=== PATIENT | male | born 1960 | race Two or more races ===

== ENCOUNTER 2016-09-09 14:06 | Inpatient (IN) | payer BC ==
[2016-09-09] MEDS ORDERED: CEFTRIAXONE 2 GRAM DUPLEX 50 ML IV ONE (15:00)
[2016-09-09 15:13] LABS: BASO % 0.2 % (0.2-1.0); HEMATOCRIT 31.7 % (32.0-52.0); LYMPH % 4.4 % (15-45); MEAN CELL VOLUME 88.3 fl (80.0-94.0); MEAN PLATELET VOLUME 9.6 fl (7.4-10.4); RED CELL DISTRIBUTION WIDTH 12.3 % (11.5-14.5)
[2016-09-09 15:15] LABS: EOS % 0.2 % (0.9-2.9); HEMOGLOBIN 10.8 gm/l (14.0-18.0); IMM NEUT # 0.2 K/mm3 (0-0.2); LYMPH # 0.9 (1.0-4.8); MEAN CORPUSCULAR HEMOGLOBIN 30.1 pg (27.0-31.0); MEAN CORPUSCULAR HGB CONC 34.1 g/dl (33.0-37.0); MONO # 1.5 (0.0-0.8); MONO % 7.1 % (4-12); NEUT % 87.1 % (43-75); PLATELET COUNT 361 K/mm3 (130-400)
[2016-09-09 15:23] LABS: ALB/GLOB RATIO 0.9 (>1.0); ALBUMIN 3.2 gm/dL (3.5-5.7); CALCIUM 8.2 mg/dL (8.6-10.3)
--- NOTE | 2016-09-09 15:35 | US ---
EXAMINATION: DUPLEX VENOUS DOPPLER ULTRASOUND:LEFT LOWER EXTREMITY CLINICAL INDICATION: Left foot redness and pain. COMPARISON: None TECHNIQUE: Both grayscale imaging and Doppler interrogation with spectral analysis and color flow was performed. Compression and flow with augmentation was also utilized. The common femoral vein to the posterior tibial and peroneal veins were assessed. FINDINGS:Appropriate compressibility and flow is demonstrated in the left common femoral, superficial femoral, popliteal, and peroneal and posterior tibial veins proximally. Normal Doppler flow with augmentation was also elicited. There is inguinal lymphadenopathy which may be reactive due to cellulitis. There is a prominent lymph node measuring 4.3 x 1.8 x 3.4 cm. There is a small fluid collection medial aspect of the knee measuring 4.0 x 0.6 x 3.0 cm.This is of uncertain significance. This may reflect a knee effusion or Cruz's cyst. No gross abscess is identified. IMPRESSION: 1. No evidence of left lower extremity deep venous thrombosis. 2. Left knee effusion versus Cruz's cyst. 3. Left inguinal lymphadenopathy. This may be reactive changes to lower extremity inflammation. Subcutaneous edema is noted with no abscess identified. The findings were uploaded to the electronic medical record for review at approximately 3:35 PM 09/09/2016
--- NOTE | 2016-09-09 15:36 | RAD ---
EXAMINATION:FOOT LEFT 3 VIEWS CLINICAL INDICATION: Left foot infection for 15 days. COMPARISONS:none FINDINGS: No fracture or focal destruction is identified. Joint space relationships of the foot are maintained. Vascular calcifications are noted. There is a plantar calcaneal heel spur. No soft tissue gas or foreign body is identified. IMPRESSION: No evidence of fracture or focal destruction involving the left foot. Vascular calcific lesions are noted. There is a plantar calcaneal heel spur.
[2016-09-09 16:00] LABS: BAND 9 % (0-10); BASOPHIL 0 % (0-1); EOSINOPHIL 0 % (1-3); LYMPHOCYTE 8 % (15-45); MONOCYTE 7 % (4-12); NEUTROPHILS 76 % (43-75); TOTAL CELLS COUNTED 100
[2016-09-09 16:01] LABS: PLATELET ESTIMATE NORMAL (NORMAL)
[2016-09-09 16:23] LABS: URINE BILIRUBIN 1+ (NEGATIVE); URINE BLOOD 1+ (NEGATIVE); URINE GLUCOSE (UA) NEGATIVE (NEGATIVE); URINE LEUKOCYTE ESTERASE NEGATIVE (NEGATIVE); URINE NITRITE NEGATIVE (NEGATIVE); URINE PROTEIN 2+ (NEGATIVE)
[2016-09-09 16:29] LABS: URINE APPEARANCE CLEAR; URINE COLOR AMBER; URINE UROBILINOGEN 8 mg/dL (0-1 mg/dl)
[2016-09-09 16:37] LABS: URINE BACTERIA NONE SEEN; URINE EPITHELIAL CELLS 0-2 /hpf
[2016-09-09 16:49] VITALS: BMI 38.9
[2016-09-09] MEDS ORDERED: BISACODYL 5 MG TABLET.EC PO PRN (17:12)
[2016-09-09] MEDS ORDERED: MENTHOL/CETYLPYRD 1 EACH LOZENGE PO PRN (17:12)
[2016-09-09] MEDS ORDERED: DIPHENHYDRAMINE HCL 50 MG CAPSULE PO PRN (17:12)
[2016-09-09] MEDS ORDERED: BISACODYL 10 MG SUP PR PRN (17:12)
[2016-09-09] MEDS ORDERED: BLISTEX LIPSTICK 1 EACH TP PRN (17:12)
[2016-09-09] MEDS ORDERED: ACETAMINOPHEN 325 MG TABLET PO PRN (17:12)
[2016-09-09] MEDS ORDERED: MAGNESIUM HYDROXIDE 30 ML UDCUP PO PRN (17:12)
[2016-09-09] MEDS ORDERED: SODIUM CHLORIDE 0.9% 1,000 ML IV SCH (17:15)
[2016-09-09] MEDS ORDERED: VANCOMYCIN HCL 0 G in SODIUM CHLORIDE 0.9% 250 ML IV SCH (17:15)
[2016-09-09] MEDS ORDERED: ONDANSETRON 4 MG/2ML 2 ML VIAL IV PRN (17:25)
[2016-09-09] MEDS ORDERED: VANCOMYCIN HCL 2.25 G in SODIUM CHLORIDE 0.9% 500 ML IV ONE (18:00)
[2016-09-09] MEDS ORDERED: PUMP TUBING ONE (18:31)
[2016-09-09] MEDS: SODIUM CHLORIDE 0.9% 1,000 ML IV SCH (18:40)
[2016-09-09] MEDS: ENOXAPARIN SODIUM 40 MG/0.4 ML SYRINGE SUB-Q SCH (19:33)
[2016-09-09] MEDS: DOCUSATE SODIUM 100 MG CAPSULE PO SCH (21:05)
[2016-09-09] MEDS: INSULIN ASPART (DOSE) 100 UNITS/1 ML SUB-Q PRN (21:13)
--- NOTE | 2016-09-09 21:30 | HP ---
SARAH JOEL [id number] DATE OF : 1960 DATE OF ADMISSION: 09/09/2016 PRIMARY CARE PROVIDER: None. CHIEF COMPLAINT: Left foot pain. HISTORY OF PRESENT ILLNESS: The patient is a 56-year-old gentleman who has a history of diabetes of unknown control who presents to the emergency department today with a history of an injury at work two weeks ago. He states that he dropped a pot onto his left foot, injuring his toes. He had some pain for several days, but that pain then resolved. He states there was some redness and puffiness, but he did not think it was anything other than an injury. Approximately four days ago he noticed that the left middle toe was getting somewhat black and he was having pain again. Three days ago he began to start feeling ill with malaise and then this morning developed some nausea, vomiting and a small headache. He came into the emergency department and was noted to have significant cellulitis and gangrene of the left 3rd toe, and he is admitted for the same. PAST MEDICAL HISTORY: Positive only for diabetes Type-2, unknown control. He takes an oral medication for this, is not sure what the medication is. He denies any history of hypertension or coronary artery disease. He has no history of infections or MRSA that he recalls. PAST SURGICAL HISTORY: None. FAMILY HISTORY: The patient states he has a strong family history towards diabetes, but otherwise family history is negative or noncontributory. SOCIAL HISTORY: The patient lives with his daughter in [place] when he is in [place]. He does go to [place] from [id number], but spends most of his time in [place]. He denies any alcohol use. He denies any drug use. He denies smoking ever in his life. ALLERGIES: The patient states no known drug allergies. MEDICATIONS: The patient is taking a diabetic medication once daily. He is not sure what this medication is, but will be retrieving it so that we can see. REVIEW OF SYSTEMS: A full 14-point review of systems is performed and positive for malaise. Positive for a mild cough without any sputum. Positive for a small headache. Positive for nausea and vomiting this morning, which is now resolved. He denies any diarrhea, constipation or abdominal pain. He denies pain in his foot at this time. He does have redness and swelling down in the left leg starting from just below the knee down throughout the foot. PHYSICAL EXAMINATION: VITAL SIGNS: In the emergency department his blood pressure is 159/74. Pulse is 96. Respiratory rate is 16. He is satting 95% on room air. His temperature is 97.3. GENERAL: The patient is lying in bed in no acute distress. HEENT: Eyes, EOMI, PERRLA. Normocephalic, atraumatic. Mucous membranes are moist. Oropharynx is clear. Tympanic membranes are clear bilaterally. HEART: Regular rate and rhythm. No murmurs and no rubs. Positive S1, S2. LUNGS: Clear to auscultation bilaterally. No wheezes, rales or rhonchi. SKIN: Warm, dry and intact. He does have erythema, with clear demarcation just below the knee that extends all the way down to the ankle. There is a small patch of clearing around the crease of the ankle, which then resumes with the erythema down from the foot into the toes. The left 3rd digit is black and bleeding with wet gangrene. There is a malodorous component to his wounds. ABDOMEN: Soft, nontender, nondistended and obese. Normal bowel sounds are heard. NEUROLOGIC: Patient is awake, alert and oriented times three. He is moving all of his extremities. The patient states he has good sensation down in the bilateral lower extremities on his uninjured toes. PSYCHOLOGIC: Patient's affect is full and appropriate. STUDIES AND LABS: Lab work shows a sodium of 132, potassium 3.8 and chloride of 98. His carbon dioxide is 25. BUN of 13 and creatinine 0.7. GFR is 117. Glucose is 177 and calcium 8.2. LFTs are all within normal limits. CBC shows a white count of 20.7, hemoglobin 10.8, hematocrit 31.7 and a platelet count of 361, with a positive left shift of 87.1%. VBG lactate is 1.5. Urinalysis is essentially clear, with 1+ bilirubin, 1+ blood in the urine and 2+ protein in the urine. IMAGING: X-ray of the foot in the emergency department showed no acute fracture, with vascular calcific lesions. ASSESSMENT/PLAN: 1. Cellulitis, with gangrene of the left 3rd toe. The cellulitis extends to the foot as well as to the lower extremity. The patient has a pretty significant and extensive cellulitis of the lower extremity. He received ceftriaxone in the emergency department. I am going to change this to vancomycin for better coverage while we are awaiting wound cultures which were obtained in the ER. We also obtained blood cultures in the ER as well. Once we have a culture and sensitivity we can then adjust the antibiotic accordingly. Should he need to be on vancomycin long-term, we will likely place a PICC. I am going to consult with surgery. X-ray performed in the emergency department did not show any signs of osteomyelitis, though I think is some good chance that the left 3rd digit is not salvageable. I will have surgery evaluate this in the morning, and have already consulted them. He will be NPO after midnight for this. For any nausea or vomiting, I am going to give him Zofran as needed and he has morphine for pain if necessary, though he is not complaining of any pain at this time. 2. Diabetes Type-2. I will be ordering a hemoglobin A1C to be performed tomorrow morning, along with his morning labs. I am going to give him an insulin sliding scale and diabetic diet and monitor his sugars closely. We can adjust his medications as necessary to keep his sugars down while he is here, although his sugar in the emergency department appears to be relatively well-controlled. 3. DVT prophylaxis. The patient is high-risk. I am going to place him on Lovenox, though we may need to hold this for surgery. 4. Code status. Patient is full code. I used newspaper editor managing services David. Flake Miller Helper number was [phone].
[2016-09-10 06:14] LABS: ABSOLUTE NEUTROPHIL COUNT 15.1 K/mm3 (1.8-7.7); BASO % 0.1 % (0.2-1.0); EOS # 0.1 (0.0-0.5); EOS % 0.4 % (0.9-2.9); HEMOGLOBIN 10.3 gm/l (14.0-18.0); IMM NEUT # 0.2 K/mm3 (0-0.2); IMM NEUT% 1.1 % (0-1); LYMPH # 1.5 (1.0-4.8); LYMPH % 8.5 % (15-45); MEAN CORPUSCULAR HEMOGLOBIN 30.2 pg (27.0-31.0); MEAN CORPUSCULAR HGB CONC 34.3 g/dl (33.0-37.0); MEAN PLATELET VOLUME 9.6 fl (7.4-10.4); MONO # 1.3 (0.0-0.8); MONO % 6.9 % (4-12); PLATELET COUNT 349 K/mm3 (130-400); RED CELL DISTRIBUTION WIDTH 12.3 % (11.5-14.5)
[2016-09-10] MEDS: VANCOMYCIN HCL 1.5 G in SODIUM CHLORIDE 0.9% 500 ML IV SCH ×2 (06:21→19:38)
[2016-09-10 06:30] LABS: ALB/GLOB RATIO 0.8 (>1.0); ALBUMIN 2.8 gm/dL (3.5-5.7); CALCIUM 8.3 mg/dL (8.6-10.3)
--- NOTE | 2016-09-10 07:14 | PDOC43 ---
- Subjective Chief Complaint: left foot pain/swelling per pt doing well. no new complaints. left foot pain improved, but some noted in left 3rd toe this AM. He denies fevers, chills, nausea or vomiting. Subjective: Reports Pain Tolerable, Reports Tolerating Diet Well, Reports Urinating Without Difficulty, Denies Shortness of Breath, Denies Cough, Denies Chest Pain, Denies Abdominal Pain, Denies Nausea, Denies Vomiting, Denies Fever , Denies Chills - Objective Vital Signs Temperature 98.8 F 09/10/16 02:00 Pulse Rate 85 09/10/16 02:00 Respiratory Rate 18 09/10/16 02:00 Blood Pressure 126/65 09/10/16 02:00 O2 Saturation by Pulse Oximetry 93 09/10/16 02:00 Oxygen Delivery Method Room Air Oxygen Flow Rate 0 Intake and Output 09/08/16 09/09/16 09/10/16 23:59 23:59 23:59 Output Total 550 Balance -550 General: Alert, Oriented x3, Cooperative, No Acute Distress Lungs: Clear to Auscultation Bilaterally, Normal Air Movement Cardiovascular: Regular Rate and Rhythm, Normal S1, Normal S2, No Murmur Abdomen: Soft, Normal Bowel Sounds, Non-Distended, No Tenderness Extremities: Edema, No Cyanosis, No Tenderness Skin: Other (there is wet gengrene apparent still on 3rd toe of left foot. diffuse erythema around the left foot and to just below the knee. this appears to have improved, if not receded from yesterdays exam) Neurological: Normal Speech Psych/Mental Status: Normal Affect, Normal Mood Laboratory 09/10/16 05:45 09/10/16 05:45 09/10/16 09/09/16 09/09/16 05:45 21:08 17:13 RBC 3.41 L Estimated GFR 117 H POC Capillary Glucose 241 H 141 H Calcium 8.3 L Total Protein 6.2 L Albumin 2.8 L Albumin/Globulin Ratio 0.8 L % Immature Granulocyt 1.1 H Current Medications: Current meds reviewed in EMR. - Problems: Assessment/Plan (1) Cellulitis of left foot Status: AcuteAssessment/Plan: blood and wound cultures done 3/4 pm. currently growing GPC in pairs. will f/ u results on vanco, appears to be improving. WBC improving as well will follow (2) Diabetes type 2, uncontrolled Qualifiers: Diabetes mellitus complication status: with neurologic complications Diabetes mellitus complication detail: with polyneuropathy Diabetes mellitus retirement insulin use: without retirement use Qualifier Code: ( E11.42) Type 2 diabetes mellitus with diabetic polyneuropathy Status: ChronicAssessment/Plan: unclear control, HgbA1c is pending. on SSI and DM diet. his family is to bring in the DM med he uses at home today (3) Gangrene of toe Status: AcuteAssessment/Plan: wet gangrene on left 3rd toe. Dr. Canela consulted, will see him today. he is NPO in anticipation of need for surgical debridement VTE Prophylaxis: lovenox Disposition: pending surgical consult. anticipate SNF vs home health for wound care
[2016-09-10] MEDS ORDERED: DIPHENHYDRAMINE HCL 25 MG CAPSULE PO PRN (07:54)
[2016-09-10] MEDS ORDERED: BLISTEX LIPSTICK 1 EACH TP PRN (07:55)
[2016-09-10] MEDS: PANTOPRAZOLE 40 MG TABLET DR PO SCH (09:54)
[2016-09-10] MEDS: DOCUSATE SODIUM 100 MG CAPSULE PO SCH ×2 (09:54→21:38)
--- NOTE | 2016-09-10 11:00 | PCMCONS ---
General Surgery Consult: CC: Foot pain on Left HPI: A couple weeks ago the patient dropped a plant on his left foot. The pain got better and he didn't think much of it. He has uncontrolled diabetes. Then his foot began aching and his toe turned black. He came to the ED for evaluation and was admitted to the hospitalist service. X-Ray didn't show osteomyelitis. The patient denies any recent F/C/NV/CP/SOB, change in bladder fx, constipation , diarrhea, unintentional weight loss, easy bleeding/bruising, or other associated symptoms. REVIEW OF SYSTEMS CONSTITUTIONAL: As per HPI. EARS, NOSE, MOUTH, THROAT: No sneezing or runny nose CARDIOVASCULAR: As per HPI. RESPIRATORY: As per HPI. GASTROINTESTINAL: As per HPI. GENITOURINARY: As per HPI. NEUROLOGICAL: No history of seizures HEMATOLOGIC: As per HPI. MUSCULOSKELETAL: No change in strength. LYMPHATICS: No history of splenectomy. PSYCHIATRIC: No change in personality or affect PMH: Diabetes PSH: none Meds: diabetic medication All: NKDA SH: Denies tobacco, denies ETOH, denies illicit drug use FH: diabetes Vitals (last 24 hours): AF VSS Physical Exam: General/Constitutional: Vitals documented above, comfortable in NAD Psych: A&O x 3, normal judgment and insight. Recent and remote memory intact. Mood and affect normal. Eyes: Pupils equal, no scleral icterus Ears, Nose, Mouth, Throat: gross hearing intact Neck: Supple Heart: RRR, no LE edema Lungs: Equal rise and fall of chest wall, non-labored breathing, no audible wheezes Neuro: Gross sensation intact Abdomen: Soft, NT/ND, no guarding. No umbilical hernia. : Testicles symmetric without masses. Penis normal without lesions. Feet: Left foot 3rd toe black. erythema traveling up leg from that location up to knee. Labs (Last 24 hours): WBC ok, CMP ok Radiology: X-ray no osteo or air under the skin A/P: 56 y/o M with wet gangrene of left 3rd toe Plan: needs to go to the OR for debrediment. Will get bone cultures in the OR Will likely cut the bone back so that we can just close the toe past the black tissue discussed risks/benefits/alternatives with him and his family. Discussed the most I would be cutting off would be the whole toe. They understand and wish to proceed.
[2016-09-10] MEDS ORDERED: MIDAZOLAM HCL 5 MG/5 ML VIAL ONE (12:12)
[2016-09-10] MEDS ORDERED: FENTANYL 5 ML ONE (12:13)
[2016-09-10] MEDS ORDERED: PROPOFOL 20 ML IV ONE (12:57)
[2016-09-10] MEDS ORDERED: SPINAL PROCEDURAL TRAY 1 EACH ONE (13:00)
[2016-09-10] MEDS ORDERED: LACTATED RINGERS 1,000 ML ONE (13:10)
[2016-09-10] MEDS ORDERED: HYDROMORPHONE HCL 1 MG/ML SYRINGE IV PRN (13:49)
[2016-09-10] MEDS ORDERED: ONDANSETRON 4 MG/2ML 2 ML VIAL IV PRN (13:49)
[2016-09-10] MEDS ORDERED: FENTANYL 100 MCG/2 ML VIAL IV PRN (13:49)
[2016-09-10] MEDS ORDERED: PROMETHAZINE HCL 25 MG/ML VIAL IM PRN (13:49)
[2016-09-10] MEDS ORDERED: LACTATED RINGERS 1,000 ML IV SCH (14:00)
[2016-09-10] MEDS: SODIUM CHLORIDE 0.9% 1,000 ML IV SCH (16:06)
[2016-09-10] MEDS ORDERED: CEFTRIAXONE 1 GRAM DUPLEX 1 G in Premix (D5W) 50 ml 1 EACH IV SCH (17:45)
[2016-09-10] MEDS: LISINOPRIL 20 MG TABLET PO SCH (17:45)
[2016-09-10] MEDS: ENOXAPARIN SODIUM 40 MG/0.4 ML SYRINGE SUB-Q SCH (18:42)
[2016-09-10] MEDS: GLYBURIDE 5 MG TABLET PO SCH ×2 (18:42→21:38)
[2016-09-11] MEDS: VANCOMYCIN HCL 1.5 G in SODIUM CHLORIDE 0.9% 500 ML IV SCH ×3 (06:00→21:59)
[2016-09-11 06:14] LABS: ABSOLUTE NEUTROPHIL COUNT 16.4 K/mm3 (1.8-7.7); BASO # 0.1 K/mm3 (0.0-0.2); BASO % 0.3 % (0.2-1.0); EOS # 0.1 (0.0-0.5); EOS % 0.5 % (0.9-2.9); HEMOGLOBIN 10.7 gm/l (14.0-18.0); IMM NEUT # 0.3 K/mm3 (0-0.2); IMM NEUT% 1.5 % (0-1); LYMPH # 1.5 (1.0-4.8); LYMPH % 7.5 % (15-45); MEAN CELL VOLUME 89.9 fl (80.0-94.0); MEAN CORPUSCULAR HEMOGLOBIN 30.1 pg (27.0-31.0); MEAN CORPUSCULAR HGB CONC 33.4 g/dl (33.0-37.0); MEAN PLATELET VOLUME 9.6 fl (7.4-10.4); MONO # 1.4 (0.0-0.8); MONO % 7.3 % (4-12); NEUT % 82.9 % (43-75); PLATELET COUNT 391 K/mm3 (130-400); RED CELL DISTRIBUTION WIDTH 12.4 % (11.5-14.5)
[2016-09-11 06:19] LABS: VANCOMYCIN TROUGH 8.1 ug/ml (5.0-10.0)
[2016-09-11] MEDS: DOCUSATE SODIUM 100 MG CAPSULE PO SCH ×2 (08:10→22:14)
[2016-09-11] MEDS: GLYBURIDE 5 MG TABLET PO SCH (08:11)
[2016-09-11] MEDS: PANTOPRAZOLE 40 MG TABLET DR PO SCH (08:11)
[2016-09-11] MEDS: LISINOPRIL 20 MG TABLET PO SCH (08:11)
[2016-09-11] MEDS: MORPHINE SULFATE 2 MG/ML SYRINGE IV PRN (08:32)
[2016-09-11] MEDS: SODIUM CHLORIDE 0.9% 1,000 ML IV SCH ×2 (10:42→15:12)
--- NOTE | 2016-09-11 12:32 | PDOC43 ---
- Subjective Subjective: Reports Flatus, Reports Pain Tolerable, Denies Bowel Movement ( feeling constipated) - Objective Vital Signs Temperature 99 F 09/11/16 08:25 Pulse Rate 77 09/11/16 08:25 Respiratory Rate 22 09/11/16 08:25 Blood Pressure 147/72 09/11/16 08:25 O2 Saturation by Pulse Oximetry 97 09/11/16 08:25 Oxygen Delivery Method Nasal Cannula Oxygen Flow Rate 3 Laboratory 09/11/16 05:30 09/11/16 05:30 09/11/16 09/11/16 09/11/16 10:26 08:16 05:30 RBC 3.56 L Estimated GFR 139 H POC Capillary Glucose 102 H 58 L Calcium 8.0 L % Immature Granulocyt 1.5 H 09/10/16 09/10/16 09/10/16 21:43 17:16 14:33 RBC Estimated GFR POC Capillary Glucose 130 H 130 H 114 H Calcium % Immature Granulocyt Active Medication Orders Category Date Time Status Acetaminophen [Tylenol] Med 09/09/16 17:12 Active 650 mg PO Q6H PRN Bisacodyl [Dulcolax] Med 09/09/16 17:12 Active 10 mg AK DAILY PRN Bisacodyl [Dulcolax] Med 09/09/16 17:12 Active 5 mg PO DAILY PRN Ceftriaxone 1 Gram Duplex [Rocephin 1 Gram Premix] 1 g Med 09/10/16 17:45 Active Premix (D5W) 50 ml 1 each IV Q24H Diphenhydramine HCl [Benadryl] Med 09/10/16 07:54 Active 25 - 50 mg PO Q6H PRN Docusate Sodium [Colace] Med 09/09/16 21:00 Active 100 mg PO BID Enoxaparin Sodium [Lovenox] Med 09/09/16 18:00 Active 40 mg SUB-Q Q24H Glyburide [Diabeta] Med 09/10/16 18:00 Active 5 mg PO BID Insulin Aspart (Dose) [Novolog (Dose)] Med 09/09/16 17:15 Active See Protocol SUB-Q WM/BEDTIME PRN Lip [place] [Blistex] Med 09/10/16 07:55 Active 0 each TP PRN PRN Lisinopril [Prinivil] Med 09/10/16 17:30 Active 20 mg PO DAILY Magnesium Hydroxide [Milk of Magnesia] Med 09/09/16 17:12 Active 30 ml PO DAILY PRN Menthol/Cetylpyridinium [Cepacol] Med 09/09/16 17:12 Active 1 each PO PRN PRN Morphine Sulfate Med 09/09/16 17:26 Active 2 mg IV Q2H PRN Ondansetron 4 mg/2ml Vial [Zofran] Med 09/09/16 17:25 Active 4 mg IV Q4H PRN Oxycodone HCl [Roxicodone] Med 09/11/16 08:46 Active 5 - 10 mg PO Q3H PRN Pantoprazole Sodium [Protonix] Med 09/10/16 09:00 Active 40 mg PO DAILY Sodium Chloride 0.9% 1,000 ml Med 09/09/16 18:15 Active IV 75 mls/hr Sodium Chloride 0.9% 100 ml Med 09/09/16 17:12 Active IV PRN Sodium Chloride 0.9% Flush [Normal Saline 10ml Flush] Med 09/09/16 17:12 Active 10 - 50 ml IV PRN PRN Sodium Chloride 0.9% Flush [Normal Saline 10ml Flush] Med 09/10/16 01:00 Active 10 ml IV Q8HR Vancomycin HCl 1.5 g Med 09/11/16 14:00 Active Sodium Chloride 0.9% 500 ml IV Q8H Intake and Output 09/09/16 09/10/16 09/11/16 23:59 23:59 23:59 Intake Total 3277 1960 Output Total 1155 250 Balance 2122 1710 General: Alert, Oriented x3, Cooperative, No Acute Distress HEENT: Atraumatic, PERRLA, EOMI, Mucous membr. moist/pink Lungs: Clear to Auscultation Bilaterally, Normal Air Movement Cardiovascular: Regular Rate and Rhythm, Normal S1, Normal S2, No Murmur Abdomen: Soft, Non-Distended, Normal Bowel Sounds, No Tenderness Extremities: Edema (left foot. wound vac w/o output) - Assessment/ Plan (1) Cellulitis of left foot Status: AcuteAssessment/ Plan: continue antibiotics await final culture results (2) Gangrene of toe Status: AcuteAssessment/ Plan: continue wound VAC may get up and when sitting may elevate leg. Not much walking PT/OT needs bowel regimen may sponge bath
[2016-09-11] MEDS: PIPERACILLIN-TAZO PREMIX BAG 3.375 G in Premix (D5W) 50 ml 1 EACH IV SCH ×2 (13:49→19:35)
--- NOTE | 2016-09-11 14:51 | PDOC43 ---
- Subjective Chief Complaint: left foot pain/swelling Subjective: Denies Fever (but redness seems worse) - Objective Vital Signs Temperature 98.7 F 09/11/16 12:15 Pulse Rate 80 09/11/16 12:15 Respiratory Rate 22 09/11/16 12:15 Blood Pressure 144/73 09/11/16 12:15 O2 Saturation by Pulse Oximetry 98 09/11/16 12:15 Oxygen Delivery Method Nasal Cannula Oxygen Flow Rate 3 Intake and Output 09/10/16 09/11/16 09/12/16 06:59 06:59 06:59 Intake Total 5237 Output Total 550 855 Balance -550 4382 General: Alert, Oriented x3, Cooperative, No Acute Distress HEENT: Mucous membr. moist/pink Lungs: Clear to Auscultation Bilaterally Cardiovascular: Regular Rate and Rhythm Abdomen: Soft, Normal Bowel Sounds, Non-Distended, No Tenderness Extremities: Edema (one plus on left foot) Skin: Erythema (over dorsum of left foot up to ankle, wound vac dressing in place) Laboratory 09/11/16 05:30 09/11/16 05:30 09/11/16 09/11/16 09/11/16 10:26 08:16 05:30 RBC 3.56 L Estimated GFR 139 H POC Capillary Glucose 102 H 58 L Calcium 8.0 L % Immature Granulocyt 1.5 H 09/10/16 09/10/16 09/10/16 21:43 17:16 14:33 RBC Estimated GFR POC Capillary Glucose 130 H 130 H 114 H Calcium % Immature Granulocyt Current Medications: Current meds reviewed in EMR. - Problems: Assessment/Plan (1) Cellulitis of left foot Status: AcuteAssessment/Plan: blood and wound cultures done 3/4 pm. currently growing multiple organisms. Awaiting results on vanco and Rocephin, appears to be worse than yestereday. WBC unchanged will change rocephin to Zosyn and cont Vancomycin (2) Gangrene of toe Status: AcuteAssessment/Plan: wet gangrene on left 3rd toe. Dr. Canela performed toe amputation on 09/10 with wound vac placement-await C and S, cont. abx and wound vac (3) Diabetes type 2, uncontrolled Qualifiers: Diabetes mellitus complication status: with neurologic complications Diabetes mellitus complication detail: with polyneuropathy Diabetes mellitus correction insulin use: without correction use Qualifier Code: ( E11.42) Type 2 diabetes mellitus with diabetic polyneuropathy Status: ChronicAssessment/Plan: unclear control, HgbA1c is still pending. on SSI, glyburide and DM diet. VTE Prophylaxis: lovenox Disposition: anticipate SNF vs home health for wound care
[2016-09-11 18:02] LABS: A1C-GLYCOHEMOGLOBIN 0.6 g/dl; HEMOGLOBIN-GLYCO 9.4 g/dl
[2016-09-11] MEDS: ENOXAPARIN SODIUM 40 MG/0.4 ML SYRINGE SUB-Q SCH (18:06)
--- NOTE | 2016-09-11 18:12 | OP ---
SARAH JOEL [id number] : 1960 DATE OF SERVICE: September 10, 2016 PREOPERATIVE DIAGNOSIS: Gangrenous left third toe. POSTOPERATIVE DIAGNOSIS: Gangrenous left third toe. PROCEDURE PERFORMED: AMPUTATION OF GANGRENOUS LEFT THIRD DISTAL TOE WITH WOUND VAC PLACEMENT. SURGEON: Monica Canela M.D. ANESTHESIA: Spinal. TECHNIQUE: The patient was brought back to the operating room and placed under spinal anesthesia. The left lower leg and foot were prepped and draped in sterile surgical fashion. A #15 blade scalpel was used to cut the skin around the black gangrenous skin and then cut between the middle phalangeal bone and it was removed from the proximal because of it being clearly infected and . The proximal phalangeal looked okay so a chunk of it was taken for cultures to make sure that it did not have any osteomyelitis in it. This whole area though was surrounded by a lot of purulent infected tissue and there was really minimal oozing or bleeding through this whole dissection. I then removed all the black necrotic tissue I could. There was a deep cavity on the pad of the foot that went in about 3 cm. I used the pulse lavage after cutting all the black and [place] tissue out that I could and once I pulse lavaged as much as I could out, with 2 liters of warm saline, I then took a white piece of foam, placed it over the end of the bone and then placed a black piece of foam over the top of the white foam and hooked it up to 125 mmHg suction continuous. The patient tolerated the procedure well. We will change the VAC in another day. I will wait for culture results and tailor antibiotics based on that. I anticipate either more debridement or closure based on how he does postoperative.
[2016-09-12] MEDS: PIPERACILLIN-TAZO PREMIX BAG 3.375 G in Premix (D5W) 50 ml 1 EACH IV SCH ×4 (01:47→20:41)
[2016-09-12] MEDS: VANCOMYCIN HCL 1.5 G in SODIUM CHLORIDE 0.9% 500 ML IV SCH ×3 (05:56→22:05)
[2016-09-12] MEDS: PANTOPRAZOLE 40 MG TABLET DR PO SCH (08:30)
[2016-09-12] MEDS: LISINOPRIL 20 MG TABLET PO SCH (08:30)
[2016-09-12] MEDS: DOCUSATE SODIUM 100 MG CAPSULE PO SCH ×2 (08:30→22:30)
[2016-09-12] MEDS: GLYBURIDE 5 MG TABLET PO SCH (08:59)
--- NOTE | 2016-09-12 11:03 | PDOC43 ---
- Subjective Chief Complaint: left foot pain/swelling Subjective: Reports Pain Tolerable, Reports Other (some hypoglycemia noted), Denies Vomiting - Objective Vital Signs Temperature 99.7 F 09/12/16 07:33 Pulse Rate 80 09/12/16 07:33 Respiratory Rate 18 09/12/16 08:00 Blood Pressure 154/86 09/12/16 07:33 O2 Saturation by Pulse Oximetry 97 09/12/16 07:33 Oxygen Delivery Method Room Air Oxygen Flow Rate 0 Intake and Output 09/11/16 09/12/16 09/13/16 06:59 06:59 06:59 Intake Total 5237 3173 Output Total 855 1400 Balance 4382 1773 General: Alert, Oriented x3, Cooperative, No Acute Distress HEENT: Mucous membr. moist/pink Lungs: Clear to Auscultation Bilaterally Cardiovascular: Regular Rate and Rhythm Abdomen: Soft, Normal Bowel Sounds, Non-Distended, No Tenderness Extremities: Other (left foot erythema has progressed some up lower leg, purulent and fluctuant area under plantar aspect of foot has now developed and is about 5 by 8cm, edema unchanged, wound vac present) Laboratory 09/11/16 05:30 09/11/16 05:30 09/12/16 09/12/16 09/11/16 09:47 08:27 21:58 POC Capillary Glucose 142 H 68 L 119 H Hemoglobin A1c 09/11/16 09/10/16 19:32 05:45 POC Capillary Glucose 55 L Hemoglobin A1c 7.6 H Current Medications: Current meds reviewed in EMR. - Problems: Assessment/Plan (1) Cellulitis of left foot Status: AcuteAssessment/Plan: blood and wound cultures done 3/4 pm. currently growing multiple organisms but GBS and SA identified so far with send pending. Awaiting results Appears to be worse than yestereday. WBC unchanged Cont. Zosyn and cont Vancomycin- review with surgery (2) Gangrene of toe Status: AcuteAssessment/Plan: wet gangrene on left 3rd toe. Dr. Canela performed toe amputation on 09/10 with wound vac placement-Anticipate need for further debridement today, NPO pending surgical eval (3) Diabetes type 2, uncontrolled Qualifiers: Diabetes mellitus complication status: with neurologic complications Diabetes mellitus complication detail: with polyneuropathy Diabetes mellitus exterminator termite insulin use: without exterminator termite use Qualifier Code: ( E11.42) Type 2 diabetes mellitus with diabetic polyneuropathy Status: ChronicAssessment/Plan: unclear control, HgbA1c is 7.6. on SSI, glyburide and DM diet--stopped glyburide this am due to hypoglycemia. VTE Prophylaxis: lovenox Disposition: anticipate SNF vs home health for wound care
[2016-09-12] MEDS ORDERED: IV START KIT ONE (14:51)
[2016-09-12] MEDS ORDERED: IOPAMIDOL 300 (61%) 100 ML VIAL IV ONE (15:16)
--- NOTE | 2016-09-12 15:54 | CT ---
LOWER EXT W/ CON LT History: Left foot cellulitis. Comparison: Plain film exam dated 09/09/2016. Procedure: 1 mm axial images were obtained through the left foot following the administration of 100cc's of Isovue-300 intravenous contrast. Stacked reconstructed 3 mm images were then photographed in the axial, coronal and sagittal planes. Findings: Images demonstrate evidence of interval partial resection of the third ray. There is been amputation of the third ray beyond the mid to distal portion of the proximal phalanx. Soft tissue gas is seen both dorsal and plantar to the surgical site the margins of the amputation appear to be smooth. There is no gross cortical destruction seen at this location or involving the remaining osseous structures. Diffuse soft tissue infiltration is observed. No rim-enhancing fluid collection is observed to suggest the presence of a focal abscess. There is suggested subchondral cyst formation involving the medial portion of the talar dome measuring 14.3 x 6.5 mm in size in the axial plane. Impression: 1. Interval partial amputation of the third ray, beyond the mid to distal aspect of the third proximal phalanx. There is likely postsurgical soft tissue gas is seen both dorsally and along the plantar second and third flexor and extensor tendons. Note that this examination does not exclude the possibility of residual osseous infection. 2. Diffuse infiltration of the soft tissues suggesting edema or cellulitis. No focal rim-enhancing abscess is observed. 3. A 1.4 x 0.7 cm focus of osteochondral injury involving the medial portion of the talar dome. The overlying cortex appears to remain intact with no loose osteochondral fragment identified.
[2016-09-12] MEDS ORDERED: LIDOCAINE 1% (PRES FREE) 30 ML VIAL ONE (15:59)
[2016-09-12] MEDS ORDERED: BUPIVACAINE 0.5% (PRES FREE) 30 ML VIAL ONE (15:59)
[2016-09-12] MEDS ORDERED: MIDAZOLAM HCL 5 MG/5 ML VIAL ONE (16:42)
[2016-09-12] MEDS ORDERED: BUPIVACAINE 0.75% SPINAL AMPUL 2 ML ONE (16:42)
[2016-09-12] MEDS ORDERED: SPINAL PROCEDURAL TRAY 1 EACH ONE (16:42)
[2016-09-12] MEDS ORDERED: FENTANYL 100 MCG/2 ML VIAL ONE (16:42)
[2016-09-12] MEDS ORDERED: HYDRALAZINE HCL 20 MG/1 ML VIAL IV PRN (17:39)
[2016-09-12] MEDS ORDERED: ATROPINE SULFATE 0.4 MG/1 ML VIAL IV PRN (17:39)
[2016-09-12] MEDS ORDERED: ONDANSETRON 4 MG/2ML 2 ML VIAL IV PRN (17:39)
[2016-09-12] MEDS ORDERED: MORPHINE SULFATE 4 MG/ML SYRINGE IV PRN (17:39)
[2016-09-12] MEDS ORDERED: PROMETHAZINE HCL 25 MG/ML VIAL IM PRN (17:39)
[2016-09-12] MEDS ORDERED: MEPERIDINE 25 MG/ML SYRINGE IV PRN (17:39)
[2016-09-12] MEDS ORDERED: NALOXONE HCL 0.4 MG/ML VIAL IV PRN (17:39)
[2016-09-12] MEDS ORDERED: LABETALOL HCL 5 MG/ML 20ML VIAL IV PRN (17:39)
[2016-09-12] MEDS ORDERED: GLYCOPYRROLATE 0.2 MG/ML 1ML VIAL ONE (17:43)
[2016-09-12] MEDS ORDERED: METOCLOPRAMIDE HCL 5 MG/ML 2ML VIAL ONE (17:43)
[2016-09-12] MEDS ORDERED: METOPROLOL TARTRATE 1 MG/ML 5ML VIAL ONE (17:43)
[2016-09-12] MEDS ORDERED: CEFAZOLIN SODIUM 1,000 MG VIAL ONE (18:01)
--- NOTE | 2016-09-12 19:31 | CONS ---
SARAH JOEL [id number] DATE OF CONSULTATION: September 12, 2016 HISTORY OF PRESENT ILLNESS: This is a 56-year-old male who was admitted to the hospital on September 09, 2016. He had pain in his left foot. He is diabetic and dropped a pot on his left foot injuring his toe. He was admitted to the hospital with findings of erythema of the lower leg, ankle and foot. There was wet gangrene of the third digit with an odor. He was started on intravenous antibiotics and surgical consultation was obtained. He was taken to the operating room on September 11, [address] Canela. She performed and amputation of a gangrenous left third distal toe and placed a wound VAC. The wound VAC was to be changed today by the nurses, and they had significant concerns about how the foot looked. Dr. Canela was in clinic in [place] and asked if I could see the patient for urgent evaluation. Most of the history is obtained through his son who interprets. He does still have some pain in the foot. PHYSICAL EXAM: VITAL SIGNS: Temperature is 98.7, pulse is 78, blood pressure 157/82, respirations are 18, O2 saturation is 94% on room air. GENERAL: He is awake, alert, appears in no acute distress. EXTREMITIES: He appears to have some chronic venous stasis changes with evidence of an old wound on the anterior left lower leg. He has swelling of the entire foot to the level of the ankle. He has a wound VAC in place. There is some lifting of the calloused skin inferiorly on the plantar aspect of the foot. There is a white area of skin that tracts from the wound VAC proximally and then along the medial aspect of the foot. There seems to be some necrosis on the dorsal aspect of the foot proximal to the amputated toe. IMAGING: I asked for a CT scan of the foot. Images were visualized. There are air bubbles on the plantar aspect of the foot proximal to where I would expect the wound to be. There are also some air bubbles dorsally on the foot. No obvious bony destruction other than the amputation is seen. LABORATORIES: His blood glucose is 105. His laboratories from this morning, his white blood cell count was 19.8. It was 20.7 preoperatively. His hemoglobin is 10.7 and platelets are 391. Sodium 136, potassium 3.4, chloride 102, carbon dioxide is 26, BUN is 11, creatinine 0.6, glucose 74. Cultures from the foot show a Streptococcus agalactiae group B beta hemolytic for which penicillin was recommended. There was also a light growth of a Staphylococcus aureus with sensitivities pending. He is currently on Zosyn and vancomycin. ASSESSMENT: Cellulitis and necrotizing infection of the left foot status post amputation of the distal third toe. PLAN: I have recommended that we proceed urgently to the operating room. At this point I told him I would not proceed with a transmetatarsal despite what I find. We will open up the foot anteriorly and posteriorly. I would like to leave as much posterior skin intact for a transmetatarsal flap if needed. I have explained to him that he is at risk for requiring amputation either of the partial foot or even higher. His chronic skin changes on the lower leg make it possible that he will have continued wound healing complications even of a below the knee amputation. I used an per diem to explain risks of surgery to him and he gives informed consent. Cc: Avery Santana D.O.
--- NOTE | 2016-09-12 20:28 | OP ---
SARAH JOEL [id number] DATE OF OPERATION: September 12, 2016 PREOPERATIVE DIAGNOSES: 1. Necrotizing soft tissue infection of the left foot. 2. Prior partial amputation of the third toe. POSTOPERATIVE DIAGNOSIS: 1. Necrotizing soft tissue infection of the left foot. 2. Prior partial amputation of the third toe. PROCEDURES: 1. INCISION AND DEBRIDEMENT OF NECROTIZING SOFT TISSUE INFECTION OF THE LEFT FOOT. 2. COMPLETION OF AMPUTATION OF THE PROXIMAL PHALANX OF THE THIRD TOE. SURGEON: Francisco J Juárez M.D. ANESTHESIA: Spinal by Karol Peña C.R.N.A. INDICATIONS: This is a 56-year-old male with diabetes who had a pot fall on to his left foot at work. He developed wet gangrene of the third toe. This was amputated. He has had persistent signs of infection including a CAT scan showing air bubbles dorsally and on the plantar aspect of the foot. DESCRIPTION: With informed consent he was taken to the operating room where spinal anesthetic was administered. The wound VAC was removed. The left foot was prepped and draped in a sterile fashion. There was purulence coming posterior and medial on the proximal phalanx of the third toe. There was also some coming anteriorly. I opened the skin anteriorly to an area of necrotic skin. There was some purulent material that was encountered and suctioned. There was no obvious bony destruction of the metatarsals at this area. There was pus coming from the space between the second and third metatarsals. There was also pus coming posteriorly. I opened the skin and plantar fascia proximally. There was quite a bit of calloused skin that I removed from the plantar aspect including the second toe. There was a space containing purulent material above and below the plantar fascia. There was an area of skin that was beginning to necrose in the mid foot. I did incise this almost as a counter incision. I did not open to the extent of the wound cavity in that that would have transected a potential posterior transmetatarsal skin flap. I debrided necrotic tissue from the subcutaneous fat around the base of the third toe. I completely excised the proximal phalanx at the metatarsophalangeal joint. The distal head was the only part of the bone exposed. I expect that in a best case scenario, we will revise this down the road and excise the metatarsal head once infection has been cleared. I am quite concerned that he going to need further amputation however. I used a PulsaVac with some Ancef of at least 1.5 liters to clean the plantar aspect of the foot above and below the plantar fascia. I cleaned the dorsal aspect of the foot as well. We placed some 1 inch iodoform Nu Gauze into the wound. Bulky absorbent dressings were applied. He was hemodynamically stable during the procedure and was taken to the recovery room in stable condition. Note was made that needle instrument and lap counts were correct at time of closure. Cc: Avery Santana M.D.
[2016-09-12] MEDS ORDERED: PUMP TUBING ONE (20:33)
[2016-09-12] MEDS: LACTATED RINGERS 1,000 ML IV SCH (20:40)
[2016-09-12] MEDS: ENOXAPARIN SODIUM 40 MG/0.4 ML SYRINGE SUB-Q SCH (20:41)
[2016-09-12] MEDS: MORPHINE SULFATE 2 MG/ML SYRINGE IV PRN (23:44)
[2016-09-13] MEDS: PIPERACILLIN-TAZO PREMIX BAG 3.375 G in Premix (D5W) 50 ml 1 EACH IV SCH ×4 (01:09→19:30)
[2016-09-13] MEDS: LACTATED RINGERS 1,000 ML IV SCH ×3 (05:35→22:12)
[2016-09-13] MEDS: MORPHINE SULFATE 2 MG/ML SYRINGE IV PRN ×2 (05:35→08:42)
[2016-09-13] MEDS: VANCOMYCIN HCL 1.5 G in SODIUM CHLORIDE 0.9% 500 ML IV SCH ×3 (05:35→21:58)
[2016-09-13 05:53] LABS: HEMOGLOBIN 9.7 gm/l (14.0-18.0); MEAN CORPUSCULAR HEMOGLOBIN 29.8 pg (27.0-31.0); MEAN CORPUSCULAR HGB CONC 33.4 g/dl (33.0-37.0); RED CELL DISTRIBUTION WIDTH 12.3 % (11.5-14.5)
[2016-09-13 06:24] LABS: CALCIUM 7.7 mg/dL (8.6-10.3)
[2016-09-13] MEDS ORDERED: POTASSIUM CHLORIDE 20 MEQ TAB.PRT.SR PO ONE (08:25)
--- NOTE | 2016-09-13 08:26 | PDOC43 ---
- Subjective Subjective: Reports Pain Tolerable - Objective Vital Signs Temperature 98.4 F 09/13/16 07:36 Pulse Rate 76 09/13/16 07:36 Respiratory Rate 18 09/13/16 07:36 Blood Pressure 144/73 09/13/16 07:36 O2 Saturation by Pulse Oximetry 92 09/13/16 07:36 Oxygen Delivery Method Room Air Oxygen Flow Rate 0 Laboratory 09/13/16 05:00 09/13/16 05:00 09/13/16 09/13/16 09/12/16 07:33 05:00 13:09 RBC 3.26 L Estimated GFR 117 H POC Capillary Glucose 109 H 105 H Calcium 7.7 L 09/12/16 09/12/16 09:47 08:27 RBC Estimated GFR POC Capillary Glucose 142 H 68 L Calcium Active Medication Orders Category Date Time Status Acetaminophen [Tylenol] Med 09/09/16 17:12 Active 650 mg PO Q6H PRN Atropine Sulfate Med 09/12/16 17:39 Active 0.2 mg IV X1 PRN Bisacodyl [Dulcolax] Med 09/09/16 17:12 Active 10 mg [place] DAILY PRN Bisacodyl [Dulcolax] Med 09/09/16 17:12 Active 5 mg PO DAILY PRN Diphenhydramine HCl [Benadryl] Med 09/10/16 07:54 Active 25 - 50 mg PO Q6H PRN Docusate Sodium [Colace] Med 09/09/16 21:00 Active 100 mg PO BID Enoxaparin Sodium [Lovenox] Med 09/09/16 18:00 Active 40 mg SUB-Q Q24H Glyburide [Diabeta] Med 09/12/16 09:00 Active 5 mg PO QAM Hydralazine HCl [Apresoline] Med 09/12/16 17:39 Active 5 mg IV Q10M PRN Insulin Aspart (Dose) [Novolog (Dose)] Med 09/09/16 17:15 Active See Protocol SUB-Q WM/BEDTIME PRN Labetalol HCl [Trandate] Med 09/12/16 17:39 Active 5 mg IV Q5M PRN Lactated Ringers 1,000 ml Med 09/12/16 17:45 Active IV 100 mls/hr Lip [place] [Blistex] Med 09/10/16 07:55 Active 0 each TP PRN PRN Lisinopril [Prinivil] Med 09/10/16 17:30 Active 20 mg PO DAILY Magnesium Hydroxide [Milk of Magnesia] Med 09/09/16 17:12 Active 30 ml PO DAILY PRN Menthol/Cetylpyridinium [Cepacol] Med 09/09/16 17:12 Active 1 each PO PRN PRN Meperidine [Demerol] Med 09/12/16 17:39 Active 25 mg IV Q10M PRN Morphine Sulfate Med 09/09/16 17:26 Active 2 mg IV Q2H PRN Morphine Sulfate Med 09/12/16 17:39 Active 2 mg IV Q5M PRN Naloxone HCl [Narcan] Med 09/12/16 17:39 Active 0.2 mg IV X1 PRN Ondansetron 4 mg/2ml Vial [Zofran] Med 09/09/16 17:25 Active 4 mg IV Q4H PRN Ondansetron 4 mg/2ml Vial [Zofran] Med 09/12/16 17:39 Active 4 mg IV X1 PRN Oxycodone HCl [Roxicodone] Med 09/11/16 08:46 Active 5 - 10 mg PO Q3H PRN Pantoprazole Sodium [Protonix] Med 09/10/16 09:00 Active 40 mg PO DAILY Piperacillin-Tazo Premix Bag [Zosyn 3.375 G] 3.375 g Med 09/11/16 13:00 Active Premix (D5W) 50 ml 1 each IV Q6H Promethazine HCl [Phenergan] Med 09/12/16 17:39 Active 12.5 - 25 mg IM X1 PRN Sodium Chloride 0.9% 100 ml Med 09/09/16 17:12 Active IV PRN Sodium Chloride 0.9% Flush [Normal Saline 10ml Flush] Med 09/09/16 17:12 Active 10 - 50 ml IV PRN PRN Sodium Chloride 0.9% Flush [Normal Saline 10ml Flush] Med 09/10/16 01:00 Active 10 ml IV Q8HR Vancomycin HCl 1.5 g Med 09/11/16 14:00 Active Sodium Chloride 0.9% 500 ml IV Q8H Intake and Output 09/12/16 09/13/16 09/14/16 06:59 06:59 06:59 Intake Total 9272 7147 Output Total 1400 2020 Balance 1773 1377 General: Alert, Oriented x3 Extremities: Cyanosis (Tissues looking better. Overall erythema of the foot looks about the same. No odor or pus visible.), Edema, No Tenderness Skin: Warm, Erythema Psych/Mental Status: Normal Affect - Assessment/ Plan (1) Cellulitis of left foot Status: AcuteAssessment/ Plan: continue antibiotics await final culture results expect erythema to improve. If getting worse, may need BKA. 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 Surprising with degree of cellulitis.
--- NOTE | 2016-09-13 08:31 | PDOC43 ---
- Subjective Chief Complaint: left foot pain/swelling Patient awake with at bedside. His pain is controlled. Subjective: Reports Pain Tolerable, Reports Tolerating Diet Well, Reports Adequate Oral Intake, Reports Bowel Movement, Reports Urinating Without Difficulty, Denies Shortness of Breath, Denies Cough, Denies Chest Pain, Denies Abdominal Pain - Objective Vital Signs Temperature 98.4 F 09/13/16 07:36 Pulse Rate 76 09/13/16 07:36 Respiratory Rate 18 09/13/16 07:36 Blood Pressure 144/73 09/13/16 07:36 O2 Saturation by Pulse Oximetry 92 09/13/16 07:36 Oxygen Delivery Method Room Air Oxygen Flow Rate 0 Intake and Output 09/11/16 09/12/16 09/13/16 23:59 23:59 23:59 Intake Total 3483 2009 3036 Output Total 250 2950 470 Balance 3233 -940 2567 General: Alert, Oriented x3, Cooperative, Other (morbidly obese), No Acute Distress HEENT: Atraumatic, PERRLA, EOMI, Mucous membr. moist/pink Lungs: Clear to Auscultation Bilaterally, Normal Air Movement Cardiovascular: Regular Rate and Rhythm, Normal S1, Normal S2 Abdomen: Soft, Distention, No Rigid, No Tenderness, No Rebounding Extremities: Other (left foot with 3rd digit amputation, incision to mid-foot with erythema, edema), No Cyanosis, No Edema, No Tenderness Wound: Erythema Neurological: Normal Speech Psych/Mental Status: Normal Mood Laboratory 09/13/16 05:00 09/13/16 05:00 09/13/16 09/13/16 09/12/16 07:33 05:00 13:09 RBC 3.26 L Estimated GFR 117 H POC Capillary Glucose 109 H 105 H Calcium 7.7 L 09/12/16 09/12/16 09:47 08:27 RBC Estimated GFR POC Capillary Glucose 142 H 68 L Calcium Current Medications: Current meds reviewed in EMR. - Problems: Assessment/Plan (1) Cellulitis of left foot Status: AcuteAssessment/Plan: blood and wound cultures done 3/4 pm. currently growing multiple organisms but GBS and SA identified so far with send pending. Awaiting results Appears to be worse than yestereday. WBC unchanged Cont. Zosyn and cont Vancomycin Foot with increased erythema, edema. Went for I&D last evening, infection seems to be progressing. Will monitor and plan for possible amputation if continued progression of infection (2) Gangrene of toe Status: AcuteAssessment/Plan: wet gangrene on left 3rd toe. Dr. Canela performed toe amputation on 09/10 with wound vac placement-Anticipate need for further debridement today, NPO pending surgical eval Foot with increased erythema, edema. Went for I&D last evening, infection seems to be progressing. 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 on SSI, glyburide and DM diet--stopped glyburide this am due to hypoglycemia. (4) Morbidly obese Qualifiers: Obesity type: due to excess calories Qualifier Code: (E66.01) Morbid ( severe) obesity due to excess calories Status: ChronicAssessment/Plan: BMI of 39.0. Complicates medical care VTE Prophylaxis: lovenox Disposition: anticipate SNF vs home health for wound care
[2016-09-13] MEDS: DOCUSATE SODIUM 100 MG CAPSULE PO SCH ×2 (08:55→21:14)
[2016-09-13] MEDS: LISINOPRIL 20 MG TABLET PO SCH (08:55)
[2016-09-13] MEDS: PANTOPRAZOLE 40 MG TABLET DR PO SCH (08:55)
[2016-09-13] MEDS: OXYCODONE HCL 5 MG TABLET PO PRN ×3 (09:00→17:15)
[2016-09-13] MEDS: GLYBURIDE 5 MG TABLET PO SCH (09:03)
[2016-09-13] MEDS: SULFAMETHOXAZOLE 800 MG/TRIMETHOPRIM 160 MG TABLET PO SCH ×2 (10:43→21:14)
[2016-09-13 13:26] LABS: VANCOMYCIN TROUGH 14.9 ug/ml (5.0-10.0)
[2016-09-13] MEDS: ENOXAPARIN SODIUM 40 MG/0.4 ML SYRINGE SUB-Q SCH (17:15)
[2016-09-13] MEDS: INSULIN ASPART (DOSE) 100 UNITS/1 ML SUB-Q PRN ×2 (17:22→21:18)
[2016-09-14] MEDS: PIPERACILLIN-TAZO PREMIX BAG 3.375 G in Premix (D5W) 50 ml 1 EACH IV SCH ×4 (01:10→19:44)
[2016-09-14] MEDS: VANCOMYCIN HCL 1.5 G in SODIUM CHLORIDE 0.9% 500 ML IV SCH ×3 (05:53→21:19)
[2016-09-14] MEDS: OXYCODONE HCL 5 MG TABLET PO PRN ×2 (05:56→19:54)
[2016-09-14 06:46] LABS: ABSOLUTE NEUTROPHIL COUNT 12.7 K/mm3 (1.8-7.7); BASO % 0.1 % (0.2-1.0); EOS # 0.2 (0.0-0.5); EOS % 1.2 % (0.9-2.9); HEMATOCRIT 30.8 % (32.0-52.0); HEMOGLOBIN 10.2 gm/l (14.0-18.0); IMM NEUT # 0.2 K/mm3 (0-0.2); IMM NEUT% 1.4 % (0-1); LYMPH # 1.3 (1.0-4.8); LYMPH % 8.6 % (15-45); MEAN CELL VOLUME 88.3 fl (80.0-94.0); MEAN CORPUSCULAR HEMOGLOBIN 29.2 pg (27.0-31.0); MEAN CORPUSCULAR HGB CONC 33.1 g/dl (33.0-37.0); MEAN PLATELET VOLUME 9.4 fl (7.4-10.4); MONO # 0.9 (0.0-0.8); MONO % 5.7 % (4-12); PLATELET COUNT 410 K/mm3 (130-400); RED CELL DISTRIBUTION WIDTH 12.5 % (11.5-14.5)
[2016-09-14 06:58] LABS: CALCIUM 7.9 mg/dL (8.6-10.3)
--- NOTE | 2016-09-14 07:40 | PDOC43 ---
- Subjective Subjective: Reports Pain Tolerable, Denies Nausea, Denies Fever - Objective Vital Signs Temperature 98.4 F 09/14/16 07:26 Pulse Rate 80 09/14/16 07:26 Respiratory Rate 17 09/14/16 07:26 Blood Pressure 155/93 09/14/16 07:26 O2 Saturation by Pulse Oximetry 91 09/14/16 07:26 Oxygen Delivery Method Room Air Oxygen Flow Rate 0 Laboratory 09/14/16 06:00 09/14/16 06:00 09/14/16 09/14/16 09/13/16 07:06 06:00 21:13 RBC 3.49 L Estimated GFR 117 H POC Capillary Glucose 125 H 228 H Calcium 7.9 L Vancomycin Trough % Immature Granulocyt 1.4 H 09/13/16 09/13/16 09/13/16 17:15 12:55 12:45 RBC Estimated GFR 117 H POC Capillary Glucose 211 H 180 H Calcium Vancomycin Trough 14.9 H % Immature Granulocyt 09/13/16 07:33 RBC Estimated GFR POC Capillary Glucose 109 H Calcium Vancomycin Trough % Immature Granulocyt Active Medication Orders Category Date Time Status Acetaminophen [Tylenol] Med 09/09/16 17:12 Active 650 mg PO Q6H PRN Bisacodyl [Dulcolax] Med 09/09/16 17:12 Active 10 mg [place] DAILY PRN Bisacodyl [Dulcolax] Med 09/09/16 17:12 Active 5 mg PO DAILY PRN Diphenhydramine HCl [Benadryl] Med 09/10/16 07:54 Active 25 - 50 mg PO Q6H PRN Docusate Sodium [Colace] Med 09/09/16 21:00 Active 100 mg PO BID Enoxaparin Sodium [Lovenox] Med 09/09/16 18:00 Active 40 mg SUB-Q Q24H Glyburide [Diabeta] Med 09/12/16 09:00 Active 5 mg PO QAM Insulin Aspart (Dose) [Novolog (Dose)] Med 09/09/16 17:15 Active See Protocol SUB-Q WM/BEDTIME PRN Lip [place] [Blistex] Med 09/10/16 07:55 Active 0 each TP PRN PRN Lisinopril [Prinivil] Med 09/10/16 17:30 Active 20 mg PO DAILY Magnesium Hydroxide [Milk of Magnesia] Med 09/09/16 17:12 Active 30 ml PO DAILY PRN Menthol/Cetylpyridinium [Cepacol] Med 09/09/16 17:12 Active 1 each PO PRN PRN Ondansetron 4 mg/2ml Vial [Zofran] Med 09/09/16 17:25 Active 4 mg IV Q4H PRN Oxycodone HCl [Roxicodone] Med 09/11/16 08:46 Active 5 - 10 mg PO Q3H PRN Pantoprazole Sodium [Protonix] Med 09/10/16 09:00 Active 40 mg PO DAILY Piperacillin-Tazo Premix Bag [Zosyn 3.375 G] 3.375 g Med 09/11/16 13:00 Active Premix (D5W) 50 ml 1 each IV Q6H Sodium Chloride 0.9% 100 ml Med 09/09/16 17:12 Active IV PRN Sodium Chloride 0.9% Flush [Normal Saline 10ml Flush] Med 09/09/16 17:12 Active 10 - 50 ml IV PRN PRN Sodium Chloride 0.9% Flush [Normal Saline 10ml Flush] Med 09/10/16 01:00 Active 10 ml IV Q8HR Sulfamethoxazole/Trimethoprim [Septra Ds] Med 09/13/16 09:45 Active 1 each PO BID Vancomycin HCl 1.5 g Med 09/11/16 14:00 Active Sodium Chloride 0.9% 500 ml IV Q8H Intake and Output 09/13/16 09/14/16 09/15/16 06:59 06:59 06:59 Intake Total 3397 2480 Output Total 20195 Balance 1377 355 General: Alert, Oriented x3 Extremities: Edema, Tenderness Wound: Erythema, No Drainage (Maybe a little better.) Psych/Mental Status: Normal Affect - Assessment/ Plan (1) Cellulitis of left foot Status: AcuteAssessment/ Plan: continue antibiotics. I agree that PICC is indicated. await final culture results on Staph. WBC improved is reassuring. I expect erythema to improve. If getting worse, may need BKA. 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 Surprising with degree of cellulitis.
[2016-09-14] MEDS: PANTOPRAZOLE 40 MG TABLET DR PO SCH (08:34)
[2016-09-14] MEDS: LISINOPRIL 20 MG TABLET PO SCH (08:34)
[2016-09-14] MEDS: DOCUSATE SODIUM 100 MG CAPSULE PO SCH ×3 (08:34→21:10)
[2016-09-14] MEDS: GLYBURIDE 5 MG TABLET PO SCH (08:35)
[2016-09-14] MEDS: SULFAMETHOXAZOLE 800 MG/TRIMETHOPRIM 160 MG TABLET PO SCH ×3 (08:35→21:10)
--- NOTE | 2016-09-14 10:06 | PDOC43 ---
- Subjective Chief Complaint: left foot pain/swelling Subjective: Reports Tolerating Diet Well, Reports Adequate Oral Intake, Denies Fever - Objective Vital Signs Temperature 98.4 F 09/14/16 07:26 Pulse Rate 80 09/14/16 07:26 Respiratory Rate 17 09/14/16 07:26 Blood Pressure 155/93 09/14/16 07:26 O2 Saturation by Pulse Oximetry 91 09/14/16 07:26 Oxygen Delivery Method Room Air Oxygen Flow Rate 0 Intake and Output 09/13/16 09/14/16 09/15/16 06:59 06:59 06:59 Intake Total 3397 2480 Output Total 2019 2124 Balance 1377 355 General: Alert, Oriented x3, Cooperative, No Acute Distress HEENT: Mucous membr. moist/pink Lungs: Clear to Auscultation Bilaterally Cardiovascular: Regular Rate and Rhythm Abdomen: Soft, Normal Bowel Sounds, Non-Distended, No Tenderness Extremities: Edema (resolving) Skin: Erythema (inleft lower leg improving, in foot stable to slightly improved , surgical wound is stable.) Laboratory 09/14/16 06:00 09/14/16 06:00 09/14/16 09/14/16 09/13/16 07:06 06:00 21:13 RBC 3.49 L Estimated GFR 117 H POC Capillary Glucose 125 H 228 H Calcium 7.9 L Vancomycin Trough % Immature Granulocyt 1.4 H 09/13/16 09/13/16 09/13/16 17:15 12:55 12:45 RBC Estimated GFR 117 H POC Capillary Glucose 211 H 180 H Calcium Vancomycin Trough 14.9 H % Immature Granulocyt Current Medications: Current meds reviewed in EMR. - Problems: Assessment/Plan (1) Cellulitis of left foot Status: AcuteAssessment/Plan: blood and wound cultures done 3/4 pm. currently growing multiple organisms but GBS and SA identified so far with sens. pending. Awaiting results Appears to be improving. WBC down slightly Cont. Zosyn, bactrim and Vancomycin Foot with improving erythema, edema. Went for I&D on 09/12, infection seems to be improving. Will monitor and follow with surgery, consult with ID when sens return. (2) Gangrene of toe Status: AcuteAssessment/Plan: wet gangrene on left 3rd toe. Dr. Canela performed toe amputation on 3/5 with wound vac placement, S/P repeat I and D on 09/12 now with daily dressing changes-Anticipate replacement of wound vac in 1-2 days (3) Diabetes type 2, uncontrolled Qualifiers: Diabetes mellitus complication status: with neurologic complications Diabetes mellitus complication detail: with polyneuropathy Diabetes mellitus senior living insulin use: without senior living use Qualifier Code: ( E11.42) Type 2 diabetes mellitus with diabetic polyneuropathy Status: ChronicAssessment/Plan: unclear control, HgbA1c is 7.6. on SSI, glyburide and DM diet--on daily Glyburide, requested dietitian consult VTE Prophylaxis: lovenox Disposition: anticipate SNF vs home health for wound care
[2016-09-14] MEDS: SODIUM CHLORIDE 0.9% 100 ML IV PRN (14:54)
--- NOTE | 2016-09-14 15:00 | SURGPATH ---
[facility] [address] [place] [id number] Patient Name: SARAH JOEL MR#: [id number] : 1960 Gender: M Specimen #: [id number] Collected: 09/10/2016 Received: 09/12/2016 Reported: 09/14/2016 Submitting Phys: PÉREZ HENRY Copy To Phys: JOANNA ALICEA [facility] Clinical History / Pre-Operative Diagnosis: Gangrene left third toe Specimen Source / Surgical Procedure Performed: Left third toe Interpretation: LEFT THIRD TOE AMPUTATION: - GANGRENOUS NECROSIS - ACUTE OSTEOMYELITIS Electronically Signed Out Nehemias Bauer M.D. Gross Description: The specimen is received in formalin labeled with the patient's name and "left third toe". The specimen consists of a 3.0 x 2.0 x 1.5 cm distal tip of a toe with nail. The specimen is entirely abnormal quevedo-black. The excisional surface is marked with black ink. The bone is softened. Senior Power Scheduler tissue is submitted. A. tip; B. longitudinal cross section including bone after decalcification DESIREE Luke Microscopic Description: Microscopic performed. 1: 98450, 50170 M86.079
[2016-09-14] MEDS: ENOXAPARIN SODIUM 40 MG/0.4 ML SYRINGE SUB-Q SCH (18:01)
[2016-09-15] MEDS: PIPERACILLIN-TAZO PREMIX BAG 3.375 G in Premix (D5W) 50 ml 1 EACH IV SCH ×4 (00:23→19:42)
[2016-09-15] MEDS: VANCOMYCIN HCL 1.5 G in SODIUM CHLORIDE 0.9% 500 ML IV SCH (05:44)
[2016-09-15] MEDS: GLYBURIDE 5 MG TABLET PO SCH (08:49)
[2016-09-15] MEDS: LISINOPRIL 20 MG TABLET PO SCH (08:49)
[2016-09-15] MEDS: PANTOPRAZOLE 40 MG TABLET DR PO SCH (08:49)
[2016-09-15] MEDS: SULFAMETHOXAZOLE 800 MG/TRIMETHOPRIM 160 MG TABLET PO SCH ×2 (08:49→21:46)
[2016-09-15] MEDS: DOCUSATE SODIUM 100 MG CAPSULE PO SCH ×2 (08:49→21:46)
[2016-09-15] MEDS ORDERED: LIDOCAINE 1% (PRES FREE) 5 ML VIAL PF PRN (09:37)
[2016-09-15] MEDS ORDERED: LORAZEPAM 2 MG/ML 1ML SDV IV PRN (09:37)
--- NOTE | 2016-09-15 10:37 | PDOC43 ---
- Subjective Chief Complaint: left foot pain/swelling Subjective: Reports Pain Tolerable, Reports Tolerating Diet Well, Denies Fever - Objective Vital Signs Temperature 98.6 F 09/15/16 07:54 Pulse Rate 74 09/15/16 07:54 Respiratory Rate 16 09/15/16 07:54 Blood Pressure 145/63 09/15/16 07:54 O2 Saturation by Pulse Oximetry 92 09/15/16 07:54 Oxygen Delivery Method Room Air Oxygen Flow Rate 0 Intake and Output 09/14/16 09/15/16 09/16/16 06:59 06:59 06:59 Intake Total 2480 3285 Output Total 2125 1525 Balance 355 1760 General: Alert, Oriented x3, Cooperative, No Acute Distress HEENT: Mucous membr. moist/pink Lungs: Clear to Auscultation Bilaterally Cardiovascular: Regular Rate and Rhythm Abdomen: Soft, Normal Bowel Sounds, Non-Distended, No Tenderness Extremities: Edema (in left foot only at 1 plus) Peripheral Pulses: Posterior Tibialis (L): Absent (biphasic doppler), Posterior Tibialis (R): 1+, Dorsalis Pedis (L): 2+, Dorsalis Pedis (R): 2+ Skin: Erythema (improving over left foot, wound vac to be placed this am) Laboratory 09/14/16 06:00 09/14/16 06:00 09/15/16 09/14/16 09/14/16 07:05 21:44 16:27 POC Capillary Glucose 127 H 149 H 168 H 09/14/16 11:20 POC Capillary Glucose 166 H Current Medications: Current meds reviewed in EMR. - Problems: Assessment/Plan (1) Cellulitis of left foot Status: AcuteAssessment/Plan: blood and wound cultures done 3/4 pm. currently growing multiple organisms but GBS, pseudomonas auruginosa, bacteroides fragilis, stenotrophomonas maltophiliaand SA identified so far with pansensitive organisms. Appears to be improving. WBC down slightly Cont. Zosyn and bactrim, stop Vancomycin Foot with improving erythema, edema. Went for I&D on 09/12, infection seems to be improving. Will monitor and follow with surgery, consult with ID to assess and determine antibiotic coverage on day of discharge to be done as an outpatient. Will cont Zosyn and Bactrim until then. PICC ordered. (2) Gangrene of toe Status: AcuteAssessment/Plan: wet gangrene on left 3rd toe. Dr. Canela performed toe amputation on 09/10 with wound vac placement, S/P repeat I and D on 09/12 now with irrigating wound vac planned-Anticipate placement of wound vac today (3) Diabetes type 2, uncontrolled Qualifiers: Diabetes mellitus complication status: with neurologic complications Diabetes mellitus complication detail: with polyneuropathy Diabetes mellitus usp insulin use: without usp use Qualifier Code: ( E11.42) Type 2 diabetes mellitus with diabetic polyneuropathy Status: ChronicAssessment/Plan: unclear control, HgbA1c is 7.6. on SSI, glyburide and DM diet--on daily Glyburide, dietitian consult done VTE Prophylaxis: lovenox Disposition: anticipate home health for wound care
[2016-09-15] MEDS: OXYCODONE HCL 5 MG TABLET PO PRN (10:38)
[2016-09-15] MEDS: MORPHINE SULFATE 2 MG/ML SYRINGE IV PRN (10:39)
--- NOTE | 2016-09-15 10:46 | PDOC43 ---
- Subjective S: No overnight events. Minimal pain. O: AFVSS Physical Exam: General/Constitutional: Vitals documented below, comfortable in NAD Psych: A&O x 3, normal judgment and insight. Recent and remote memory intact. Mood and affect normal. Eyes: Pupils equal, no scleral icterus Ears, Nose, Mouth, Throat: gross hearing intact Neck: Supple Heart: RRR Lungs: Equal rise and fall of chest wall, non-labored breathing, no audible wheezes LEFT foot: Erythema improved, stable edema. Open wound with exposed tendon on dorsal aspect with minimal exposed bone distally. Moderate (stable) fibrinous exudate in wound bed. There is 2-3mL of gross purulence with moderate TTP at tracking portion of wound in plantar space. Purulence expressed. A/P: 56yo M with complex diabetic foot infection. Given purulence this AM, will attempt to place [facility] [place] irrigating wound vac. Will f/u on WBC (pending this AM) and continue Abx as per hospitalist/ID. Anticipate continued inpatient care at least for the next 3-4 days. Mukul Winkler MD [facility], , [facility] Staff General Surgeon Mission - Objective Vital Signs Temperature 98.6 F 09/15/16 07:54 Pulse Rate 74 09/15/16 07:54 Respiratory Rate 16 09/15/16 07:54 Blood Pressure 145/63 09/15/16 07:54 O2 Saturation by Pulse Oximetry 92 09/15/16 07:54 Oxygen Delivery Method Room Air Oxygen Flow Rate 0 Laboratory 09/14/16 06:00 09/14/16 06:00 09/15/16 09/14/16 09/14/16 07:05 21:44 16:27 POC Capillary Glucose 127 H 149 H 168 H 09/14/16 11:20 POC Capillary Glucose 166 H Active Medication Orders Category Date Time Status Acetaminophen [Tylenol] Med 09/09/16 17:12 Active 650 mg PO Q6H PRN Bisacodyl [Dulcolax] Med 09/09/16 17:12 Active 10 mg [place] DAILY PRN Bisacodyl [Dulcolax] Med 09/09/16 17:12 Active 5 mg PO DAILY PRN Diphenhydramine HCl [Benadryl] Med 09/10/16 07:54 Active 25 - 50 mg PO Q6H PRN Docusate Sodium [Colace] Med 09/09/16 21:00 Active 100 mg PO BID Enoxaparin Sodium [Lovenox] Med 09/09/16 18:00 Active 40 mg SUB-Q Q24H Glyburide [Diabeta] Med 09/12/16 09:00 Active 5 mg PO QAM Insulin Aspart (Dose) [Novolog (Dose)] Med 09/09/16 17:15 Active See Protocol SUB-Q WM/BEDTIME PRN Lidocaine 1% (Pres Free) Med 09/15/16 09:37 Active 2 - 5 ml PF X1 PRN Lip [place] [Blistex] Med 09/10/16 07:55 Active 0 each TP PRN PRN Lisinopril [Prinivil] Med 09/10/16 17:30 Active 20 mg PO DAILY Lorazepam [Ativan] Med 09/15/16 09:37 Active 0.5 - 1 mg IV X1 PRN Magnesium Hydroxide [Milk of Magnesia] Med 09/09/16 17:12 Active 30 ml PO DAILY PRN Menthol/Cetylpyridinium [Cepacol] Med 09/09/16 17:12 Active 1 each PO PRN PRN Morphine Sulfate Med 09/09/16 17:26 Active 2 mg IV Q2H PRN Ondansetron 4 mg/2ml Vial [Zofran] Med 09/09/16 17:25 Active 4 mg IV Q4H PRN Oxycodone HCl [Roxicodone] Med 09/11/16 08:46 Active 5 - 10 mg PO Q3H PRN Pantoprazole Sodium [Protonix] Med 09/10/16 09:00 Active 40 mg PO DAILY Piperacillin-Tazo Premix Bag [Zosyn 3.375 G] 3.375 g Med 09/11/16 13:00 Active Premix (D5W) 50 ml 1 each IV Q6H Sodium Chloride 0.9% 100 ml Med 09/09/16 17:12 Active IV PRN Sodium Chloride 0.9% Flush [Normal Saline 10ml Flush] Med 09/09/16 17:12 Active 10 - 50 ml IV PRN PRN Sodium Chloride 0.9% Flush [Normal Saline 10ml Flush] Med 09/10/16 01:00 Active 10 ml IV Q8HR Sulfamethoxazole/Trimethoprim [Septra Ds] Med 09/13/16 09:45 Active 1 each PO BID Intake and Output 09/13/16 09/14/16 09/15/16 23:59 23:59 23:59 Intake Total 6147 3311 1604 Output Total 1890 1505 725 Balance 1996 3290 846
[2016-09-15] MEDS ORDERED: SODIUM CHLORIDE IRRIG IR PRN ×2 (10:50→10:55)
--- NOTE | 2016-09-15 16:36 | RAD ---
PORTABLE CHEST RADIOGRAPH HISTORY: PICC placement. Frontal portable chest radiograph dated 09/15/2016. COMPARISON: None. FINDINGS: LUNG VOLUMES: Diminished. FOCAL AIRSPACE OPACITY: Vascular congestion and bilateral perihilar opacities. PLEURAL EFFUSION: Small left pleural effusion. CARDIOMEDIASTINAL SILHOUETTE: Apparent dextrocardia. Right upper extremity approach venous catheter, tip position raising suspicion for left-sided superior vena cava, PICC nurse aware. Right-sided gastric bubble. PNEUMOTHORAX: None identified. OSSEOUS STRUCTURES: No grossly destructive lesions. IMPRESSION: Findings compatible with vascular congestion with small left pleural effusion. Apparent dextrocardia with suspicion for left sided superior vena cava. Possible situs inversus. Right upper extremity approach venous catheter.
[2016-09-15] MEDS: ENOXAPARIN SODIUM 40 MG/0.4 ML SYRINGE SUB-Q SCH (17:53)
[2016-09-16] MEDS: PIPERACILLIN-TAZO PREMIX BAG 3.375 G in Premix (D5W) 50 ml 1 EACH IV SCH ×4 (01:49→20:00)
[2016-09-16] MEDS: SODIUM CHLORIDE 0.9% 100 ML IV PRN (01:49)
[2016-09-16] MEDS: OXYCODONE HCL 5 MG TABLET PO PRN ×4 (01:51→20:23)
[2016-09-16] MEDS: GLYBURIDE 5 MG TABLET PO SCH (09:35)
[2016-09-16] MEDS: DOCUSATE SODIUM 100 MG CAPSULE PO SCH ×2 (09:35→20:23)
[2016-09-16] MEDS: LISINOPRIL 20 MG TABLET PO SCH (09:36)
[2016-09-16] MEDS: PANTOPRAZOLE 40 MG TABLET DR PO SCH (09:36)
[2016-09-16] MEDS: SULFAMETHOXAZOLE 800 MG/TRIMETHOPRIM 160 MG TABLET PO SCH ×2 (09:36→20:23)
--- NOTE | 2016-09-16 09:43 | PDOC43 ---
- Subjective Chief Complaint: left foot pain/swelling Subjective: Reports Pain Tolerable, Reports Tolerating Diet Well, Denies Fever - Objective Vital Signs Temperature 98.0 F 09/16/16 07:33 Pulse Rate 71 09/16/16 07:33 Respiratory Rate 17 09/16/16 07:39 Blood Pressure 161/86 09/16/16 07:33 O2 Saturation by Pulse Oximetry 92 09/16/16 07:33 Oxygen Delivery Method Room Air Oxygen Flow Rate 0 Intake and Output 09/15/16 09/16/16 09/17/16 06:59 06:59 07:59 Intake Total 3285 2410 Output Total 1525 2075 Balance 1760 335 General: Alert, Oriented x3, Cooperative, No Acute Distress HEENT: Mucous membr. moist/pink Lungs: Clear to Auscultation Bilaterally Cardiovascular: Regular Rate and Rhythm Abdomen: Soft, Normal Bowel Sounds, Non-Distended, No Tenderness Extremities: Edema (in left leg improving) Wound: Dressing Clean/Dry/Intact, Erythema (stable) Laboratory 09/14/16 06:00 09/14/16 06:00 09/16/16 09/15/16 09/15/16 07:15 21:50 16:54 POC Capillary Glucose 125 H 176 H 170 H 09/15/16 11:52 POC Capillary Glucose 159 H Current Medications: Current meds reviewed in EMR. - Problems: Assessment/Plan (1) Cellulitis of left foot Status: AcuteAssessment/Plan: blood and wound cultures done 3/4 pm. currently growing multiple organisms but GBS, pseudomonas auruginosa, bacteroides fragilis, stenotrophomonas maltophiliaand SA identified so far with pansensitive organisms. Appears to be improving. WBC down slightly Cont. Zosyn and bactrim, stopped Vancomycin on 09/15 Foot with improving erythema, edema. Went for I&D on 09/12, infection seems to be improving. Will monitor and follow with surgery, consulted with ID, will need to assess and determine antibiotic coverage on day of discharge to be done as an outpatient(follow up with [place] infusion to be arranged on day of discharge). Will cont Zosyn and Bactrim until then. PICC placed on 09/15. (2) Gangrene of toe Status: AcuteAssessment/Plan: wet gangrene on left 3rd toe. Dr. Canela performed toe amputation on 09/10 with wound vac placement, S/P repeat I and D on 09/12 now with irrigating wound vac planned-Placed wound vac on 09/15 (3) Diabetes type 2, uncontrolled Qualifiers: Diabetes mellitus complication status: with neurologic complications Diabetes mellitus complication detail: with polyneuropathy Diabetes mellitus residential insulin use: without residential use Qualifier Code: ( E11.42) Type 2 diabetes mellitus with diabetic polyneuropathy Status: ChronicAssessment/Plan: HgbA1c is 7.6. on SSI, glyburide and DM diet, seems well controlled--on daily Glyburide, dietitian consult done VTE Prophylaxis: lovenox Disposition: anticipate home health for wound care
[2016-09-16] MEDS: ENOXAPARIN SODIUM 40 MG/0.4 ML SYRINGE SUB-Q SCH (18:06)
[2016-09-16] MEDS ORDERED: PUMP TUBING ONE (20:39)
[2016-09-16] MEDS: INSULIN ASPART (DOSE) 100 UNITS/1 ML SUB-Q PRN (22:15)
[2016-09-17] MEDS: PIPERACILLIN-TAZO PREMIX BAG 3.375 G in Premix (D5W) 50 ml 1 EACH IV SCH ×4 (01:26→19:25)
[2016-09-17 06:43] LABS: ABSOLUTE NEUTROPHIL COUNT 9.9 K/mm3 (1.8-7.7); BASO % 0.3 % (0.2-1.0); EOS # 0.3 (0.0-0.5); EOS % 2.1 % (0.9-2.9); HEMOGLOBIN 11.7 gm/l (14.0-18.0); IMM NEUT # 0.2 K/mm3 (0-0.2); IMM NEUT% 1.5 % (0-1); LYMPH # 1.8 (1.0-4.8); LYMPH % 13.9 % (15-45); MEAN CELL VOLUME 88.2 fl (80.0-94.0); MEAN CORPUSCULAR HEMOGLOBIN 29.5 pg (27.0-31.0); MEAN CORPUSCULAR HGB CONC 33.4 g/dl (33.0-37.0); MEAN PLATELET VOLUME 9.4 fl (7.4-10.4); MONO # 0.8 (0.0-0.8); MONO % 6.5 % (4-12); NEUT % 75.7 % (43-75); PLATELET COUNT 500 K/mm3 (130-400); RED CELL DISTRIBUTION WIDTH 12.4 % (11.5-14.5)
--- NOTE | 2016-09-17 10:14 | PDOC43 ---
- Subjective Chief Complaint: left foot pain/swelling Patient reports doing ok as far as pain control goes. No respiratory c/o, no GI c/o. Wound vac with irrigation applied, RN reports concern about wound on foot looking more open. - Objective Vital Signs Temperature 98.2 F 09/17/16 07:54 Pulse Rate 74 09/17/16 07:54 Respiratory Rate 17 09/17/16 08:56 Blood Pressure 144/86 09/17/16 07:54 O2 Saturation by Pulse Oximetry 92 09/17/16 07:54 Oxygen Delivery Method Room Air Oxygen Flow Rate 0 Vital Signs Last 12 Hours Temp Pulse Resp BP Pulse Ox 09/17/16 08:56 17 09/17/16 07:54 98.2 F 74 18 144/86 92 09/17/16 04:05 18 09/17/16 01:43 98.6 F 69 18 140/78 94 09/16/16 21:45 20 Intake and Output 09/15/16 09/16/16 09/18/16 23:59 23:59 00:59 Intake Total 3564 1210 300 Output Total 2300 1300 Balance 1264 -90 300 General: Alert, Cooperative HEENT: Atraumatic Lungs: Clear to Auscultation Bilaterally, Normal Air Movement Cardiovascular: Regular Rate and Rhythm, Other (heart sounds heart sl better on R (c/w dx of dextrocardia)) Abdomen: Soft Extremities: Edema (R leg unrem. L foot with wound vac, large incision on dorsal and plantar foot.) Wound: Other (wound edges with some whitening, sugg of maceration. Plantar aspect with some sl gaping of wound noted, prox aspect opened some. lateral and distal foot with some duskiness, sl swelling sugg.) Neurological: Normal Speech Psych/Mental Status: Other (pt and appear concerned.) Laboratory 09/17/16 06:00 09/14/16 06:00 09/17/16 09/17/16 09/16/16 08:30 06:00 22:09 RBC 3.97 L POC Capillary Glucose 155 H 205 H % Immature Granulocyt 1.5 H 09/16/16 09/16/16 18:05 12:14 RBC POC Capillary Glucose 139 H 167 H % Immature Granulocyt Current Medications: Current meds reviewed in EMR. Active Medications Acetaminophen (Tylenol) 650 mg PO Q6H PRN PRN Reason: Pain or Temperature > 100.5 F Last Admin: 09/10/16 17:16 Dose: 650 mg Benzocaine/Menthol (Cepacol) 1 each PO PRN PRN PRN Reason: Sore Throat Bisacodyl (Dulcolax) 10 mg [place] DAILY PRN PRN Reason: Constipation Bisacodyl (Dulcolax) 5 mg PO DAILY PRN PRN Reason: Constipation Last Admin: 09/16/16 06:12 Dose: 5 mg Diphenhydramine HCl (Benadryl) 25 - 50 mg PO Q6H PRN PRN Reason: Itching Last Admin: 09/11/16 06:00 Dose: 50 mg Docusate Sodium (Colace) 100 mg PO BID [facility] Last Admin: 09/16/16 20:23 Dose: 100 mg Enoxaparin Sodium (Lovenox) 40 mg SUB-Q Q24H [facility] Last Admin: 09/16/16 18:06 Dose: 40 mg Glyburide (Diabeta) 5 mg PO QAM [facility] Last Admin: 09/16/16 09:35 Dose: 5 mg Sodium Chloride (Sodium Chloride 0.9%) 100 mls @ 25 mls/hr IV PRN PRN PRN Reason: Flush Last Admin: 09/16/16 01:49 Dose: 25 mls/hr Piperacillin/Tazobactam/Dextrose 3.375 g/ Premix (D5W) 50 ml 50 mls @ 100 mls/ hr IV Q6H [facility] Last Admin: 09/17/16 06:12 Dose: 100 mls/hr Insulin Aspart (Novolog (Dose)) 0 units SUB-Q WM/BEDTIME PRN; Protocol PRN Reason: Blood Sugar > Last Admin: 09/16/16 22:15 Dose: 2 units Lidocaine HCl (Lidocaine 1% (Pres Free)) 2 - 5 ml PF X1 PRN PRN Reason: Pain from PICC line placement Last Admin: 09/15/16 16:41 Dose: 4 ml Lisinopril (Prinivil) 20 mg PO DAILY [facility] Last Admin: 09/16/16 09:36 Dose: 20 mg Lorazepam (Ativan) 0.5 - 1 mg IV X1 PRN PRN Reason: Anxiety during PICC Placement Magnesium Hydroxide (Milk Of Magnesia) 30 ml PO DAILY PRN PRN Reason: Constipation Last Admin: 09/16/16 03:02 Dose: 30 ml Morphine Sulfate (Morphine Sulfate) 2 mg IV Q2H PRN PRN Reason: Pain Last Admin: 09/15/16 10:39 Dose: 2 mg Ondansetron HCl (Zofran) 4 mg IV Q4H PRN PRN Reason: Nausea/Vomiting Oxycodone HCl (Roxicodone) 5 - 10 mg PO Q3H PRN PRN Reason: Pain Last Admin: 09/16/16 20:23 Dose: 5 mg Pantoprazole Sodium (Protonix) 40 mg PO DAILY [facility] Last Admin: 09/16/16 09:36 Dose: 40 mg Petrolatum/Paraffin/Mineral Oil (Blistex) 0 each TP PRN PRN PRN Reason: Dry and/or chapped lips Sodium Chloride (Normal Saline 10ml Flush) 10 - 50 ml IV PRN PRN PRN Reason: IV Flush Last Admin: 09/17/16 06:11 Dose: 10 ml Sodium Chloride (Normal Saline 10ml Flush) 10 ml IV Q8HR [facility] Last Admin: 09/17/16 01:26 Dose: 10 ml Sodium Chloride (Sodium Chloride 500 Irrig Bot) 0 ml [place] DAILY PRN Last Admin: 09/15/16 12:23 Dose: 500 ml Trimethoprim/Sulfamethoxazole (Septra Ds) 1 each PO BID [facility] Last Admin: 09/16/16 20:23 Dose: 1 each - Problems: Assessment/Plan (1) Cellulitis of left foot Status: AcuteAssessment/Plan: blood and wound cultures done 3/4 pm. currently growing multiple organisms but GBS, Pseudomonas aeruginosa, Bacteroides fragilis, Stenotrophomonas maltophilia and MSSA identified so far with pansensitive organisms. Appears to be improving, appreciate surgical input. WBC continues to trend downward. Dr Winkler reports placing a local dressing and Aquacel Ag dressing on. Previously consulted with ID, will need to assess and determine antibiotic coverage on day of discharge to be done as an outpatient(follow up with [place] infusion to be arranged on day of discharge). Will cont Zosyn and Bactrim until then. PICC placed on 09/15. (2) Gangrene of toe Status: AcuteAssessment/Plan: wet gangrene on left 3rd toe. Dr. Canela performed toe amputation on 09/10 with wound vac placement, S/P repeat I and D on 09/12 now with irrigating wound vac planned-Placed wound vac on 09/15; now just with dressing, to be re-eval tomorrow for possible further surgical care. Appreciate Surgical input on further management (3) Diabetes type 2, uncontrolled Qualifiers: Diabetes mellitus complication status: with neurologic complications Diabetes mellitus complication detail: with polyneuropathy Diabetes mellitus terminal operations supervisor insulin use: without usp use Qualifier Code: ( E11.42) Type 2 diabetes mellitus with diabetic polyneuropathy Status: ChronicAssessment/Plan: HgbA1c is 7.6. on SSI, glyburide and DM diet, seems well controlled--on daily Glyburide, dietitian consult done Most recent CBGs: Laboratory Tests 09/15/16 09/15/16 09/16/16 16:54 21:50 07:15 POC Capillary Glucose 170 H 176 H 125 H 09/16/16 09/16/16 09/16/16 12:14 18:05 22:09 POC Capillary Glucose 167 H 139 H 205 H (4) Morbidly obese Qualifiers: Obesity type: due to excess calories Qualifier Code: (E66.01) Morbid ( severe) obesity due to excess calories Status: ChronicAssessment/Plan: BMI of 39.0. Complicates medical care VTE Prophylaxis: lovenox Disposition: anticipate home health for wound care
--- NOTE | 2016-09-17 10:23 | PDOC43 ---
- Subjective S: Called by nursing last night due to some scant weeping from wound vac site , but no leak alarm. I instructed them to re-enforce it as long as it was holding suction. Called by Dr. Perales this AM for concerns of paleness of the wound edges. The patient denies any pain. No other events. O: AFVSS, below Physical Exam: General/Constitutional: Vitals documented above, comfortable in NAD Psych: A&O x 3, normal judgment and insight. Recent and remote memory intact. Mood and affect normal. Eyes: Pupils equal, no scleral icterus Ears, Nose, Mouth, Throat: gross hearing intact Neck: Supple Heart: RRR, no LE edema Lungs: Equal rise and fall of chest wall, non-labored breathing, no audible wheezes LEFT lower extremity: Wound vac removed. Erythema completely resolved. Wound edges slightly pale but viable. Some granulation tissue on plantar aspect of wound. Similar amounts of tendon/bone exposed. Moderate fibrinous exudate in lateral portion of wound and deep plantar space. Moderate pain when probing plantar space (tracks approx. 6cm, similar to prior exam) with scant sero- purulent drainage. Aquacel AG dressing placed, instructed nursing to apply fluff gauze, wrap with Kerlex, and re-enforce as needed. A/P: 56yo M with complex LEFT diabetic foot wound. Erythema resolved and WBC continues to improve (15.3>13, granulocytes improved 83%>75.7%). Wound also improved, albeit minimally. What is concerning is the fibrinous exudate, persistent purulence, and pain in the deep plantar space. Continue Abx as per hospitalist/ID and trend WBC tomorrow. Will re-examine wound with STEPS nurse tomorrow. Make NPO at midnight in case wound is worsening for possible I&D in OR. Mukul Winkler MD - Objective Vital Signs Temperature 98.2 F 09/17/16 07:54 Pulse Rate 74 09/17/16 07:54 Respiratory Rate 17 09/17/16 08:56 Blood Pressure 144/86 09/17/16 07:54 O2 Saturation by Pulse Oximetry 92 09/17/16 07:54 Oxygen Delivery Method Room Air Oxygen Flow Rate 0 Laboratory 09/17/16 06:00 09/14/16 06:00 09/17/16 09/17/16 09/16/16 08:30 06:00 22:09 RBC 3.97 L POC Capillary Glucose 155 H 205 H % Immature Granulocyt 1.5 H 09/16/16 09/16/16 18:05 12:14 RBC POC Capillary Glucose 139 H 167 H % Immature Granulocyt Active Medication Orders Category Date Time Status Acetaminophen [Tylenol] Med 09/09/16 17:12 Active 650 mg PO Q6H PRN Bisacodyl [Dulcolax] Med 09/09/16 17:12 Active 10 mg [place] DAILY PRN Bisacodyl [Dulcolax] Med 09/09/16 17:12 Active 5 mg PO DAILY PRN Diphenhydramine HCl [Benadryl] Med 09/10/16 07:54 Active 25 - 50 mg PO Q6H PRN Docusate Sodium [Colace] Med 09/09/16 21:00 Active 100 mg PO BID Enoxaparin Sodium [Lovenox] Med 09/09/16 18:00 Active 40 mg SUB-Q Q24H Glyburide [Diabeta] Med 09/12/16 09:00 Active 5 mg PO QAM Insulin Aspart (Dose) [Novolog (Dose)] Med 09/09/16 17:15 Active See Protocol SUB-Q WM/BEDTIME PRN Lidocaine 1% (Pres Free) Med 09/15/16 09:37 Active 2 - 5 ml PF X1 PRN Lip [place] [Blistex] Med 09/10/16 07:55 Active 0 each TP PRN PRN Lisinopril [Prinivil] Med 09/10/16 17:30 Active 20 mg PO DAILY Lorazepam [Ativan] Med 09/15/16 09:37 Active 0.5 - 1 mg IV X1 PRN Magnesium Hydroxide [Milk of Magnesia] Med 09/09/16 17:12 Active 30 ml PO DAILY PRN Menthol/Cetylpyridinium [Cepacol] Med 09/09/16 17:12 Active 1 each PO PRN PRN Morphine Sulfate Med 09/09/16 17:26 Active 2 mg IV Q2H PRN Ondansetron 4 mg/2ml Vial [Zofran] Med 09/09/16 17:25 Active 4 mg IV Q4H PRN Oxycodone HCl [Roxicodone] Med 09/11/16 08:46 Active 5 - 10 mg PO Q3H PRN Pantoprazole Sodium [Protonix] Med 09/10/16 09:00 Active 40 mg PO DAILY Piperacillin-Tazo Premix Bag [Zosyn 3.375 G] 3.375 g Med 09/11/16 13:00 Active Premix (D5W) 50 ml 1 each IV Q6H Sodium Chloride 0.9% 100 ml Med 09/09/16 17:12 Active IV PRN Sodium Chloride 0.9% Flush [Normal Saline 10ml Flush] Med 09/09/16 17:12 Active 10 - 50 ml IV PRN PRN Sodium Chloride 0.9% Flush [Normal Saline 10ml Flush] Med 09/10/16 01:00 Active 10 ml IV Q8HR Sodium Chloride 500 Irrig Bot Med 09/15/16 10:55 Active 0 ml [place] DAILY PRN Sulfamethoxazole/Trimethoprim [Septra Ds] Med 09/13/16 09:45 Active 1 each PO BID Intake and Output 09/15/16 09/16/16 09/18/16 23:59 23:59 00:59 Intake Total 3564 1210 300 Output Total 2300 1300 Balance 1264 -90 300
[2016-09-17] MEDS: DOCUSATE SODIUM 100 MG CAPSULE PO SCH ×2 (10:26→20:53)
[2016-09-17] MEDS: LISINOPRIL 20 MG TABLET PO SCH (10:26)
[2016-09-17] MEDS: GLYBURIDE 5 MG TABLET PO SCH (10:26)
[2016-09-17] MEDS: SULFAMETHOXAZOLE 800 MG/TRIMETHOPRIM 160 MG TABLET PO SCH ×2 (10:27→20:53)
[2016-09-17] MEDS: OXYCODONE HCL 5 MG TABLET PO PRN (10:27)
[2016-09-17] MEDS: PANTOPRAZOLE 40 MG TABLET DR PO SCH (10:27)
[2016-09-17] MEDS: ENOXAPARIN SODIUM 40 MG/0.4 ML SYRINGE SUB-Q SCH (17:56)
[2016-09-17] MEDS: INSULIN ASPART (DOSE) 100 UNITS/1 ML SUB-Q PRN (22:23)
[2016-09-17] MEDS ORDERED: POTASSIUM CHLORIDE 20 MEQ in SODIUM CHLORIDE 0.45% 1,000 ML IV SCH (22:50)
[2016-09-18] MEDS ORDERED: SODIUM CHLOR 0.45%/KCL 20 MEQ 1,000 ML ONE (01:07)
[2016-09-18] MEDS ORDERED: PUMP TUBING ONE ×2 (01:07→18:39)
[2016-09-18] MEDS: PIPERACILLIN-TAZO PREMIX BAG 3.375 G in Premix (D5W) 50 ml 1 EACH IV SCH ×4 (01:11→19:13)
[2016-09-18] MEDS ORDERED: SODIUM CHLOR 0.45%/KCL 20 MEQ 1,000 ML IV SCH (02:00)
[2016-09-18 05:26] LABS: ABSOLUTE NEUTROPHIL COUNT 10.1 K/mm3 (1.8-7.7); BASO # 0.1 K/mm3 (0.0-0.2); BASO % 0.4 % (0.2-1.0); EOS # 0.3 (0.0-0.5); EOS % 2.6 % (0.9-2.9); HEMOGLOBIN 11.7 gm/l (14.0-18.0); IMM NEUT # 0.2 K/mm3 (0-0.2); IMM NEUT% 1.3 % (0-1); LYMPH # 1.8 (1.0-4.8); LYMPH % 13.6 % (15-45); MEAN CELL VOLUME 87.9 fl (80.0-94.0); MEAN CORPUSCULAR HEMOGLOBIN 29.4 pg (27.0-31.0); MEAN CORPUSCULAR HGB CONC 33.4 g/dl (33.0-37.0); MEAN PLATELET VOLUME 9.1 fl (7.4-10.4); MONO # 0.7 (0.0-0.8); MONO % 5.3 % (4-12); NEUT % 76.8 % (43-75); PLATELET COUNT 509 K/mm3 (130-400); RED CELL DISTRIBUTION WIDTH 12.2 % (11.5-14.5)
[2016-09-18 05:50] LABS: CALCIUM 8.3 mg/dL (8.6-10.3)
[2016-09-18] MEDS: LISINOPRIL 20 MG TABLET PO SCH (09:07)
[2016-09-18] MEDS: GLYBURIDE 5 MG TABLET PO SCH (09:07)
[2016-09-18] MEDS: DOCUSATE SODIUM 100 MG CAPSULE PO SCH ×2 (09:07→21:13)
[2016-09-18] MEDS: PANTOPRAZOLE 40 MG TABLET DR PO SCH (09:07)
[2016-09-18] MEDS: SULFAMETHOXAZOLE 800 MG/TRIMETHOPRIM 160 MG TABLET PO SCH ×2 (09:07→21:13)
--- NOTE | 2016-09-18 12:24 | PDOC43 ---
- Subjective Chief Complaint: left foot pain/swelling No nursing complaints this am. Pt reports feeling ok today, no complaints today. - Objective Vital Signs Temperature 98.0 F 09/18/16 06:30 Pulse Rate 72 09/18/16 06:30 Respiratory Rate 16 09/18/16 08:00 Blood Pressure 133/82 09/18/16 09:06 O2 Saturation by Pulse Oximetry 95 09/18/16 06:30 Oxygen Delivery Method Room Air Oxygen Flow Rate 0 Vital Signs Last 12 Hours Temp Pulse Resp BP Pulse Ox 09/18/16 09:06 133/82 09/18/16 08:00 16 09/18/16 06:30 98.0 F 72 16 138/85 95 09/18/16 01:25 16 09/18/16 01:20 98.6 F 78 16 128/79 93 Intake and Output 09/16/16 09/17/16 09/18/16 22:59 23:59 23:59 Intake Total 527 Output Total 825 Balance -298 General: Alert, Cooperative, No Acute Distress HEENT: Atraumatic Lungs: Clear to Auscultation Bilaterally, Normal Air Movement Cardiovascular: Regular Rate and Rhythm Abdomen: Soft, Normal Bowel Sounds, Non-Distended Extremities: Other (Foot dressed, exposed portion of toes appear to be have good color. Not unwrapped at this time.), No Edema Skin: Normal Color Neurological: Normal Speech Psych/Mental Status: Normal Affect, Normal Mood Laboratory 09/18/16 05:22 09/18/16 05:22 09/18/16 09/18/16 09/17/16 07:23 05:22 22:17 RBC 3.98 L POC Capillary Glucose 176 H 232 H Calcium 8.3 L % Immature Granulocyt 1.3 H 09/17/16 19:25 RBC POC Capillary Glucose 194 H Calcium % Immature Granulocyt Current Medications: Current meds reviewed in EMR. Active Medications Acetaminophen (Tylenol) 650 mg PO Q6H PRN PRN Reason: Pain or Temperature > 100.5 F Last Admin: 09/10/16 17:16 Dose: 650 mg Benzocaine/Menthol (Cepacol) 1 each PO PRN PRN PRN Reason: Sore Throat Bisacodyl (Dulcolax) 10 mg [place] DAILY PRN PRN Reason: Constipation Bisacodyl (Dulcolax) 5 mg PO DAILY PRN PRN Reason: Constipation Last Admin: 09/16/16 06:12 Dose: 5 mg Diphenhydramine HCl (Benadryl) 25 - 50 mg PO Q6H PRN PRN Reason: Itching Last Admin: 09/11/16 06:00 Dose: 50 mg Docusate Sodium (Colace) 100 mg PO BID REPLACED BY [facility] Last Admin: 09/18/16 09:07 Dose: 100 mg Enoxaparin Sodium (Lovenox) 40 mg SUB-Q Q24H REPLACED BY [facility] Last Admin: 09/17/16 17:56 Dose: 40 mg Glyburide (Diabeta) 5 mg PO QAM REPLACED BY [facility] Last Admin: 09/18/16 09:07 Dose: 5 mg Sodium Chloride (Sodium Chloride 0.9%) 100 mls @ 25 mls/hr IV PRN PRN PRN Reason: Flush Last Admin: 09/16/16 01:49 Dose: 25 mls/hr Piperacillin/Tazobactam/Dextrose 3.375 g/ Premix (D5W) 50 ml 50 mls @ 100 mls/ hr IV Q6H REPLACED BY [facility] Last Admin: 09/18/16 07:19 Dose: 100 mls/hr Potassium Chloride/Sodium Chloride (Sodium Chlor 0.45%/Kcl 20 Meq) 1,000 mls @ 125 mls/hr IV BY DURATION REPLACED BY [facility] Last Admin: 09/18/16 10:27 Dose: 125 mls/hr Insulin Aspart (Novolog (Dose)) 0 units SUB-Q WM/BEDTIME PRN; Protocol PRN Reason: Blood Sugar > Last Admin: 09/17/16 22:23 Dose: 2 units Lisinopril (Prinivil) 20 mg PO DAILY REPLACED BY [facility] Last Admin: 09/18/16 09:07 Dose: 20 mg Lorazepam (Ativan) 0.5 - 1 mg IV X1 PRN PRN Reason: Anxiety during PICC Placement Magnesium Hydroxide (Milk Of Magnesia) 30 ml PO DAILY PRN PRN Reason: Constipation Last Admin: 09/16/16 03:02 Dose: 30 ml Morphine Sulfate (Morphine Sulfate) 2 mg IV Q2H PRN PRN Reason: Pain Last Admin: 09/15/16 10:39 Dose: 2 mg Ondansetron HCl (Zofran) 4 mg IV Q4H PRN PRN Reason: Nausea/Vomiting Oxycodone HCl (Roxicodone) 5 - 10 mg PO Q3H PRN PRN Reason: Pain Last Admin: 09/17/16 10:27 Dose: 10 mg Pantoprazole Sodium (Protonix) 40 mg PO DAILY SUSAN Last Admin: 09/18/16 09:07 Dose: 40 mg Petrolatum/Paraffin/Mineral Oil (Blistex) 0 each TP PRN PRN PRN Reason: Dry and/or chapped lips Sodium Chloride (Normal Saline 10ml Flush) 10 - 50 ml IV PRN PRN PRN Reason: IV Flush Last Admin: 09/18/16 05:14 Dose: 40 ml Sodium Chloride (Normal Saline 10ml Flush) 10 ml IV Q8HR SUSAN Last Admin: 09/18/16 09:08 Dose: Not Given Sodium Chloride (Sodium Chloride 500 Irrig Bot) 0 ml IR DAILY PRN Last Admin: 09/15/16 12:23 Dose: 500 ml Trimethoprim/Sulfamethoxazole (Septra Ds) 1 each PO BID SUSAN Last Admin: 09/18/16 09:07 Dose: 1 each - Problems: Assessment/Plan (1) Cellulitis of left foot Status: AcuteAssessment/Plan: blood and wound cultures done 3/4 pm. currently growing multiple organisms but GBS, Pseudomonas aeruginosa, Bacteroides fragilis, Stenotrophomonas maltophilia and MSSA identified so far with pansensitive organisms. Appears to be improving, appreciate surgical input. WBC stable today. Dr Winkler reports placing a local dressing and Aquacel Ag dressing on. Previously consulted with ID, will need to assess and determine antibiotic coverage on day of discharge to be done as an outpatient(follow up with [facility] infusion to be arranged on day of discharge). Will cont Zosyn and Bactrim until then. PICC placed on 09/15. Awaiting to see about whether to have additional debridement today (2) Gangrene of toe Status: AcuteAssessment/Plan: wet gangrene on left 3rd toe. Dr. Canela performed toe amputation on 09/10 with wound vac placement, S/P repeat I and D on 09/12 now with irrigating wound vac planned-Placed wound vac on 09/15; now just with dressing, to be re-eval tomorrow for possible further surgical care. 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 on SSI, glyburide and DM diet, seems well controlled--on daily Glyburide, dietitian consult done Most recent CBGs: Laboratory Tests 09/17/16 09/17/16 09/17/16 08:30 19:25 22:17 Glucose POC Capillary Glucose 155 H 194 H 232 H 09/18/16 09/18/16 05:22 07:23 Glucose 170 H POC Capillary Glucose 176 H (4) Morbidly obese Qualifiers: Obesity type: due to excess calories Qualifier Code: (E66.01) Morbid ( severe) obesity due to excess calories Status: ChronicAssessment/Plan: BMI of 39.0. Complicates medical care VTE Prophylaxis: lovenox Disposition: anticipate home health for wound care
--- NOTE | 2016-09-18 12:31 | SURGPATH ---
[facility] [address] [place] [id number] Patient Name: SARAH JOEL MR#: [id number] : 1960 Gender: M Specimen #: [id number] Collected: 09/12/2016 Received: 09/14/2016 Reported: 09/18/2016 Submitting Phys: NICHOL ROSEN Copy To Phys: JOANNA ALICEA [facility] Clinical History / Pre-Operative Diagnosis: INFECTED LEFT FOOT Specimen Source / Surgical Procedure Performed: LEFT THIRD PROXIMAL PHALANX AND SURROUNDING TISSUE Interpretation: BONE AND SOFT TISSUE, LEFT THIRD PROXIMAL PHALANX, EXCISION: - BONE SHOWING MODERATE ACUTE OSTEOMYELITIS. - SOFT TISSUE SHOWING MARKED ACUTE INFLAMMATION AND ASSOCIATED FAT NECROSIS. - NO EVIDENCE OF MALIGNANCY. Electronically Signed Out Matthew Vu M.D., Ph.D. Gross Description: The specimen is received in a formalin filled container labeled with the patient's name and "left third proximal phalanx and surrounding tissue". An aggregate of soft pale bush-christie fibroconnective tissue and bone is 4.5 x 3.5 x 1.7 cm. Decalcification precedes histologic examination. Summary of sections: A-soft tissue B-bone (submitted for decalcification) Jaylin Vilchis Microscopic Description: A couple sections from the left third proximal phalanx and surrounding soft tissue are microscopically examined. The surrounding fibroadipose connective tissue shows a marked acute inflammatory cell infiltrate with areas of fat necrosis. The associated bone shows a moderate acute inflammatory cell infiltrate. There is no evidence of malignancy. 1: [id number], [id number] M86.172
--- NOTE | 2016-09-18 13:04 | PDOC43 ---
- Subjective S: No acute events overnight. Denies pain. O: AFVSS, below Physical Exam: General/Constitutional: Vitals documented above, comfortable in NAD Psych: A&O x 3, normal judgment and insight. Recent and remote memory intact. Mood and affect normal. Eyes: Pupils equal, no scleral icterus Ears, Nose, Mouth, Throat: gross hearing intact Neck: Supple Heart: RRR, no LE edema Lungs: Equal rise and fall of chest wall, non-labored breathing, no audible wheezes LEFT lower extremity: Kerlex resolved. No erythema. Punctate wound at center of plantar aspect of wound with seropurulent drainage that appears to communicate with distal wound approx. 6cm away. A/P: 56yo M with complex diabetic LEFT foot infection. Given persistent leukocytosis, purulence, and likely connection between two wounds, I recommend another incision and drainage in the operating room. The operation and expected post-operative course were discussed at length via environmental services coordinator. We discussed the risks of the operation to include, but not limited to: bleeding, pain, infection, scar, damage to surrounding structures ( potentially tendon and bone), recurrence, failure to improve health, need for additional procedures, and the risks of anesthesia (heart attack, arrhythmia, stroke, blood clot, and ). The patient understands these risks and agrees to proceed with surgery. Will plan for I&D in OR this afternoon. Will also plan to place VAC Ulta ( irrigating wound vac) in OR. Mukul Winkler MD - Objective Vital Signs Temperature 98.0 F 09/18/16 06:30 Pulse Rate 72 09/18/16 06:30 Respiratory Rate 16 09/18/16 08:00 Blood Pressure 133/82 09/18/16 09:06 O2 Saturation by Pulse Oximetry 95 09/18/16 06:30 Oxygen Delivery Method Room Air Oxygen Flow Rate 0 Laboratory 09/18/16 05:22 09/18/16 05:22 09/18/16 09/18/16 09/18/16 12:38 07:23 05:22 RBC 3.98 L POC Capillary Glucose 136 H 176 H Calcium 8.3 L % Immature Granulocyt 1.3 H 09/17/16 09/17/16 22:17 19:25 RBC POC Capillary Glucose 232 H 194 H Calcium % Immature Granulocyt Active Medication Orders Category Date Time Status Acetaminophen [Tylenol] Med 09/09/16 17:12 Active 650 mg PO Q6H PRN Bisacodyl [Dulcolax] Med 09/09/16 17:12 Active 10 mg [place] DAILY PRN Bisacodyl [Dulcolax] Med 09/09/16 17:12 Active 5 mg PO DAILY PRN Diphenhydramine HCl [Benadryl] Med 09/10/16 07:54 Active 25 - 50 mg PO Q6H PRN Docusate Sodium [Colace] Med 09/09/16 21:00 Active 100 mg PO BID Enoxaparin Sodium [Lovenox] Med 09/09/16 18:00 Active 40 mg SUB-Q Q24H Glyburide [Diabeta] Med 09/12/16 09:00 Active 5 mg PO QAM Insulin Aspart (Dose) [Novolog (Dose)] Med 09/09/16 17:15 Active See Protocol SUB-Q WM/BEDTIME PRN Lip [place] [Blistex] Med 09/10/16 07:55 Active 0 each TP PRN PRN Lisinopril [Prinivil] Med 09/10/16 17:30 Active 20 mg PO DAILY Lorazepam [Ativan] Med 09/15/16 09:37 Active 0.5 - 1 mg IV X1 PRN Magnesium Hydroxide [Milk of Magnesia] Med 09/09/16 17:12 Active 30 ml PO DAILY PRN Menthol/Cetylpyridinium [Cepacol] Med 09/09/16 17:12 Active 1 each PO PRN PRN Morphine Sulfate Med 09/09/16 17:26 Active 2 mg IV Q2H PRN Ondansetron 4 mg/2ml Vial [Zofran] Med 09/09/16 17:25 Active 4 mg IV Q4H PRN Oxycodone HCl [Roxicodone] Med 09/11/16 08:46 Active 5 - 10 mg PO Q3H PRN Pantoprazole Sodium [Protonix] Med 09/10/16 09:00 Active 40 mg PO DAILY Piperacillin-Tazo Premix Bag [Zosyn 3.375 G] 3.375 g Med 09/11/16 13:00 Active Premix (D5W) 50 ml 1 each IV Q6H Sodium Chlor 0.45%/KCl 20 Meq 1,000 ml Med 09/18/16 02:00 Active IV BY DURATION Sodium Chloride 0.9% 100 ml Med 09/09/16 17:12 Active IV PRN Sodium Chloride 0.9% Flush [Normal Saline 10ml Flush] Med 09/09/16 17:12 Active 10 - 50 ml IV PRN PRN Sodium Chloride 0.9% Flush [Normal Saline 10ml Flush] Med 09/10/16 01:00 Active 10 ml IV Q8HR Sodium Chloride 500 Irrig Bot Med 09/15/16 10:55 Active 0 ml IR DAILY PRN Sulfamethoxazole/Trimethoprim [Septra Ds] Med 09/13/16 09:45 Active 1 each PO BID Intake and Output 09/16/16 09/17/16 09/18/16 22:59 23:59 23:59 Intake Total 527 Output Total 825 Balance -298
[2016-09-18] MEDS ORDERED: PROPOFOL 20 ML IV ONE ×3 (14:08→17:05)
[2016-09-18] MEDS ORDERED: BUPIVACAINE 0.5% (PRES FREE) 30 ML VIAL ONE ×2 (14:08→15:45)
[2016-09-18] MEDS ORDERED: LIDOCAINE 2% (PRES FREE) 5 ML VIAL ONE (14:08)
[2016-09-18] MEDS ORDERED: FENTANYL 100 MCG/2 ML VIAL ONE ×2 (14:09→16:41)
[2016-09-18] MEDS ORDERED: MIDAZOLAM HCL 1 MG/ML 2ML VIAL ONE (14:09)
[2016-09-18] MEDS ORDERED: DEXAMETHASONE SOD PHOS 4 MG/1 ML VIAL ONE (14:10)
[2016-09-18] MEDS ORDERED: METOCLOPRAMIDE HCL 5 MG/ML 2ML VIAL ONE (14:10)
[2016-09-18] MEDS ORDERED: LACTATED RINGERS 1,000 ML ONE (15:50)
[2016-09-18] MEDS ORDERED: LIDOCAINE 1%/EPI 1:100,000 (MULTI DOSE) 30 ML VIAL ONE (16:15)
[2016-09-18] MEDS ORDERED: ONDANSETRON 4 MG/2ML 2 ML VIAL IV PRN (16:46)
[2016-09-18] MEDS ORDERED: HYDRALAZINE HCL 20 MG/1 ML VIAL IV PRN (16:46)
[2016-09-18] MEDS ORDERED: NALOXONE HCL 0.4 MG/ML VIAL IV PRN (16:46)
[2016-09-18] MEDS ORDERED: MORPHINE SULFATE 4 MG/ML SYRINGE IV PRN (16:46)
[2016-09-18] MEDS ORDERED: FENTANYL 100 MCG/2 ML VIAL IV PRN (16:46)
[2016-09-18] MEDS ORDERED: LABETALOL HCL 5 MG/ML 20ML VIAL IV PRN (16:46)
[2016-09-18] MEDS ORDERED: ATROPINE SULFATE 0.4 MG/1 ML VIAL IV PRN (16:46)
[2016-09-18] MEDS ORDERED: PROMETHAZINE HCL 25 MG/ML VIAL IM PRN (16:46)
--- NOTE | 2016-09-18 17:35 | PCMON ---
OPERATIVE REPORT Date of Operation: 09/18/16 Pre-Op Diagnosis: LEFT diabetic foot wound Post-Op Diagnosis: LEFT diabetic foot wound Operation: Incision and drainage of LEFT foot Surgeon: Fernanda Winkler MD Pet Feeder: None Anesthesia: Local/MAC Specimen Sent to Lab: None Infection Classification: 4 Estimated Blood Loss: 25mL Indication for Procedure: The patient is a 58 year old male with a complex LEFT diabetic foot infection. He has previously undergone a LEFT 3rd toe amputation and a second incision and drainage. After initial improvement, his wound now has purulent drainage and his leukocytosis is persistent. The plan for today is an incision and drainage of his LEFT foot. Description of Findings: There was approx. 5 mL of purulent drainage within the LEFT deep plantar space. The existing wound was extended to the midpoint of the plantar surface of his LEFT foot without any further tracking. An irrigating wound V.A.C. (Veraflow) was placed. Detailed Operative Report: The patient was met in the pre-operative holding area by the operating team. All questions and concerns were addressed appropriately. The patient was taken to the operating room where IV sedation was induced. A left ankle block was placed by the anesthesia service. The LEFT foot and leg were prepped and draped in the normal steril fashion. Local anesthetic was injected into the proposed incision site. There was a punctate opening at the center of the plantar surface of the LEFT foot. The skin was incised from the distal portion of his 3rd toe amputation site to this punctate opening. The fascia was encountered and sharply divided expelling approximately 5 mL of purulent drainage. The remainder of the wound had a significant amount of fibrinous exudate along with the known exposed bone and tendon. The wound was bluntly debrided with a dry sponge. The wound was thoroughly irrigated and hemostasis was ensured. A V.A.C. veraflow device was placed with good seal. White foam was placed on top of the tendon and bone. The system was instilled with 10mL of saline holding its seal without evidence of leak. This concluded the procedure. The patient was then awakened from anesthesia and transferred to the PACU without complication. Prior to closing, all sponge and instrument counts were correct. FERNANDA WINKLER MD
[2016-09-18] MEDS: ENOXAPARIN SODIUM 40 MG/0.4 ML SYRINGE SUB-Q SCH (18:27)
[2016-09-18] MEDS: LACTATED RINGERS 1,000 ML IV SCH (19:13)
[2016-09-19] MEDS: PIPERACILLIN-TAZO PREMIX BAG 3.375 G in Premix (D5W) 50 ml 1 EACH IV SCH ×5 (00:55→18:08)
[2016-09-19] MEDS: OXYCODONE HCL 5 MG TABLET PO PRN (05:45)
[2016-09-19] MEDS: LACTATED RINGERS 1,000 ML IV SCH ×2 (05:45→16:41)
[2016-09-19 06:16] LABS: ABSOLUTE NEUTROPHIL COUNT 8.5 K/mm3 (1.8-7.7); BASO % 0.4 % (0.2-1.0); EOS # 0.2 (0.0-0.5); EOS % 2.1 % (0.9-2.9); HEMATOCRIT 36.3 % (32.0-52.0); HEMOGLOBIN 12.1 gm/l (14.0-18.0); IMM NEUT # 0.1 K/mm3 (0-0.2); IMM NEUT% 0.8 % (0-1); LYMPH # 1.4 (1.0-4.8); LYMPH % 12.4 % (15-45); MEAN CELL VOLUME 86.6 fl (80.0-94.0); MEAN CORPUSCULAR HEMOGLOBIN 28.9 pg (27.0-31.0); MEAN CORPUSCULAR HGB CONC 33.3 g/dl (33.0-37.0); MEAN PLATELET VOLUME 9.1 fl (7.4-10.4); MONO # 0.7 (0.0-0.8); MONO % 6.5 % (4-12); NEUT % 77.8 % (43-75); PLATELET COUNT 563 K/mm3 (130-400); RED CELL DISTRIBUTION WIDTH 12.4 % (11.5-14.5)
--- NOTE | 2016-09-19 08:54 | PDOC43 ---
- Subjective S: Denies pain, no other issues Physical Exam: General/Constitutional: Vitals documented above, comfortable in NAD Psych: A&O x 3, normal judgment and insight. Recent and remote memory intact. Mood and affect normal. Eyes: Pupils equal, no scleral icterus Ears, Nose, Mouth, Throat: gross hearing intact Neck: Supple Heart: RRR, no LE edema Lungs: Equal rise and fall of chest wall, non-labored breathing, no audible wheezes Extremity: LEFT foot wound with wound V.A.C. in place with good seal. No surrounding erythema. SS irrigation fluid in canister. A/P: 58yo M with complex diabetic LEFT foot wound. WBC improved 13>11 after repeat I&D and draining purulence from deep plantar space. Continue Abx, will plan for wound vac change at bedside tomorrow. Mukul Winkler MD - Objective Vital Signs Temperature 98.5 F 09/19/16 06:36 Pulse Rate 74 09/19/16 06:36 Respiratory Rate 18 09/19/16 06:36 Blood Pressure 125/73 09/19/16 06:36 O2 Saturation by Pulse Oximetry 94 09/19/16 06:36 Oxygen Delivery Method Room Air Oxygen Flow Rate 0 Laboratory 09/19/16 05:30 09/18/16 05:22 09/19/16 09/19/16 09/18/16 07:36 05:30 21:17 RBC 4.19 L POC Capillary Glucose 163 H 116 H 09/18/16 09/18/16 17:49 12:38 RBC POC Capillary Glucose 105 H 136 H Active Medication Orders Category Date Time Status Acetaminophen [Tylenol] Med 09/09/16 17:12 Active 650 mg PO Q6H PRN Atropine Sulfate Med 09/18/16 16:46 Active 0.2 mg IV X1 PRN Bisacodyl [Dulcolax] Med 09/09/16 17:12 Active 10 mg [place] DAILY PRN Bisacodyl [Dulcolax] Med 09/09/16 17:12 Active 5 mg PO DAILY PRN Diphenhydramine HCl [Benadryl] Med 09/10/16 07:54 Active 25 - 50 mg PO Q6H PRN Docusate Sodium [Colace] Med 09/09/16 21:00 Active 100 mg PO BID Enoxaparin Sodium [Lovenox] Med 09/09/16 18:00 Active 40 mg SUB-Q Q24H Fentanyl Med 09/18/16 16:46 Active 50 mcg IV Q5M PRN Glyburide [Diabeta] Med 09/12/16 09:00 Active 5 mg PO QAM Hydralazine HCl [Apresoline] Med 09/18/16 16:46 Active 5 mg IV Q10M PRN Insulin Aspart (Dose) [Novolog (Dose)] Med 09/09/16 17:15 Active See Protocol SUB-Q WM/BEDTIME PRN Labetalol HCl [Trandate] Med 09/18/16 16:46 Active 5 mg IV Q5M PRN Lactated Ringers 1,000 ml Med 09/18/16 17:00 Active IV 100 mls/hr Lip [place] [Blistex] Med 09/10/16 07:55 Active 0 each TP PRN PRN Lisinopril [Prinivil] Med 09/10/16 17:30 Active 20 mg PO DAILY Lorazepam [Ativan] Med 09/15/16 09:37 Active 0.5 - 1 mg IV X1 PRN Magnesium Hydroxide [Milk of Magnesia] Med 09/09/16 17:12 Active 30 ml PO DAILY PRN Menthol/Cetylpyridinium [Cepacol] Med 09/09/16 17:12 Active 1 each PO PRN PRN Morphine Sulfate Med 09/09/16 17:26 Active 2 mg IV Q2H PRN Morphine Sulfate Med 09/18/16 16:46 Active 2 mg IV Q5M PRN Naloxone HCl [Narcan] Med 09/18/16 16:46 Active 0.2 mg IV X1 PRN Ondansetron 4 mg/2ml Vial [Zofran] Med 09/09/16 17:25 Active 4 mg IV Q4H PRN Ondansetron 4 mg/2ml Vial [Zofran] Med 09/18/16 16:46 Active 4 mg IV X1 PRN Oxycodone HCl [Roxicodone] Med 09/11/16 08:46 Active 5 - 10 mg PO Q3H PRN Pantoprazole Sodium [Protonix] Med 09/10/16 09:00 Active 40 mg PO DAILY Piperacillin-Tazo Premix Bag [Zosyn 3.375 G] 3.375 g Med 09/11/16 13:00 Active Premix (D5W) 50 ml 1 each IV Q6H Promethazine HCl [Phenergan] Med 09/18/16 16:46 Active 12.5 - 25 mg IM X1 PRN Sodium Chlor 0.45%/KCl 20 Meq 1,000 ml Med 09/18/16 02:00 Active IV BY DURATION Sodium Chloride 0.9% 100 ml Med 09/09/16 17:12 Active IV PRN Sodium Chloride 0.9% Flush [Normal Saline 10ml Flush] Med 09/09/16 17:12 Active 10 - 50 ml IV PRN PRN Sodium Chloride 0.9% Flush [Normal Saline 10ml Flush] Med 09/10/16 01:00 Active 10 ml IV Q8HR Sodium Chloride 500 Irrig Bot Med 09/15/16 10:55 Active 0 ml IR DAILY PRN Sulfamethoxazole/Trimethoprim [Septra Ds] Med 09/13/16 09:45 Active 1 each PO BID Intake and Output 09/17/16 09/18/16 09/19/16 23:59 23:59 23:59 Intake Total 1873 1697 Output Total 825 Balance 5934 1800
[2016-09-19] MEDS: DOCUSATE SODIUM 100 MG CAPSULE PO SCH ×2 (09:06→21:09)
[2016-09-19] MEDS: SULFAMETHOXAZOLE 800 MG/TRIMETHOPRIM 160 MG TABLET PO SCH ×2 (09:06→21:09)
[2016-09-19] MEDS: GLYBURIDE 5 MG TABLET PO SCH (09:07)
[2016-09-19] MEDS: PANTOPRAZOLE 40 MG TABLET DR PO SCH (09:07)
[2016-09-19] MEDS: LISINOPRIL 20 MG TABLET PO SCH (09:07)
--- NOTE | 2016-09-19 11:22 | PDOC43 ---
- Subjective Chief Complaint: left foot pain/swelling Patient reports feeling pretty good. Pt had add'l drainage procedure yesterday from foot. No new c/o. - Objective Vital Signs Temperature 98.5 F 09/19/16 06:36 Pulse Rate 74 09/19/16 06:36 Respiratory Rate 18 09/19/16 07:35 Blood Pressure 125/73 09/19/16 06:36 O2 Saturation by Pulse Oximetry 94 09/19/16 06:36 Oxygen Delivery Method Room Air Oxygen Flow Rate 0 Vital Signs Last 12 Hours Temp Pulse Resp BP Pulse Ox 09/19/16 07:35 18 09/19/16 06:36 98.5 F 74 18 125/73 94 09/19/16 04:40 98.4 F 76 16 133/73 93 09/19/16 02:00 18 09/19/16 00:15 99.3 F 77 128/79 93 Intake and Output 09/17/16 09/18/16 09/19/16 23:59 23:59 23:59 Intake Total 1873 1697 Output Total 825 Balance 1048 1697 General: Alert, Cooperative, No Acute Distress HEENT: Atraumatic Lungs: Clear to Auscultation Bilaterally, Normal Air Movement Cardiovascular: Regular Rate and Rhythm Abdomen: Soft, Normal Bowel Sounds, Non-Distended, No Tenderness Extremities: Other (L lower leg without edema. Large incision on L foot, missing middle toe. Redness and swelling appear better. Wound vac on.) Neurological: Normal Speech Laboratory 09/19/16 05:30 09/18/16 05:22 09/19/16 09/19/16 09/19/16 09:05 07:36 05:30 RBC 4.19 L POC Capillary Glucose 161 H 163 H 09/18/16 09/18/16 09/18/16 21:17 17:49 12:38 RBC POC Capillary Glucose 116 H 105 H 136 H Current Medications: Current meds reviewed in EMR. - Problems: Assessment/Plan (1) Cellulitis of left foot Status: AcuteAssessment/Plan: WBC declining. Appreciate surgical care. blood and wound cultures done 3/4 pm. Wound grew multiple organisms but GBS, Pseudomonas aeruginosa, Bacteroides fragilis, Stenotrophomonas maltophilia and MSSA identified so far with pansensitive organisms. Blood cx neg. Previously consulted with ID, will need to assess and determine antibiotic coverage on day of discharge to be done as an outpatient(follow up with [facility] infusion to be arranged on day of discharge). Will cont Zosyn and Bactrim until then. PICC placed on 09/15. Awaiting to see about whether to have additional debridement tomorrow. (2) Gangrene of toe Status: AcuteAssessment/Plan: wet gangrene on left 3rd toe. Dr. 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 on SSI, glyburide and DM diet, seems well controlled--on daily Glyburide, dietitian consult done Most recent CBGs: Laboratory Tests 09/18/16 09/18/16 09/18/16 12:38 17:49 21:17 POC Capillary Glucose 136 H 105 H 116 H 09/19/16 09/19/16 07:36 09:05 POC Capillary Glucose 163 H 161 H (4) Morbidly obese Qualifiers: Obesity type: due to excess calories Qualifier Code: (E66.01) Morbid ( severe) obesity due to excess calories Status: ChronicAssessment/Plan: BMI of 39.0. Complicates medical care VTE Prophylaxis: lovenox Disposition: anticipate home health for wound care
[2016-09-19] MEDS: ENOXAPARIN SODIUM 40 MG/0.4 ML SYRINGE SUB-Q SCH (17:54)
[2016-09-19] MEDS: INSULIN ASPART (DOSE) 100 UNITS/1 ML SUB-Q PRN (22:08)
[2016-09-20] MEDS: PIPERACILLIN-TAZO PREMIX BAG 3.375 G in Premix (D5W) 50 ml 1 EACH IV SCH ×4 (00:42→18:27)
[2016-09-20] MEDS: LACTATED RINGERS 1,000 ML IV SCH ×2 (03:43→16:17)
[2016-09-20 06:14] LABS: ABSOLUTE NEUTROPHIL COUNT 6.5 K/mm3 (1.8-7.7); BASO % 0.3 % (0.2-1.0); EOS # 0.3 (0.0-0.5); EOS % 2.9 % (0.9-2.9); HEMATOCRIT 34.5 % (32.0-52.0); HEMOGLOBIN 11.8 gm/l (14.0-18.0); IMM NEUT # 0.1 K/mm3 (0-0.2); IMM NEUT% 1.1 % (0-1); LYMPH # 1.7 (1.0-4.8); LYMPH % 18.8 % (15-45); MEAN CELL VOLUME 87.3 fl (80.0-94.0); MEAN CORPUSCULAR HEMOGLOBIN 29.9 pg (27.0-31.0); MEAN CORPUSCULAR HGB CONC 34.2 g/dl (33.0-37.0); MEAN PLATELET VOLUME 8.8 fl (7.4-10.4); MONO # 0.6 (0.0-0.8); MONO % 6.6 % (4-12); NEUT % 70.3 % (43-75); PLATELET COUNT 554 K/mm3 (130-400); RED CELL DISTRIBUTION WIDTH 12.1 % (11.5-14.5)
[2016-09-20] MEDS: OXYCODONE HCL 5 MG TABLET PO PRN ×2 (08:05→10:20)
[2016-09-20] MEDS: PANTOPRAZOLE 40 MG TABLET DR PO SCH (08:05)
[2016-09-20] MEDS: GLYBURIDE 5 MG TABLET PO SCH (08:05)
[2016-09-20] MEDS: DOCUSATE SODIUM 100 MG CAPSULE PO SCH ×2 (08:05→21:11)
[2016-09-20] MEDS: LISINOPRIL 20 MG TABLET PO SCH (08:06)
[2016-09-20] MEDS: SULFAMETHOXAZOLE 800 MG/TRIMETHOPRIM 160 MG TABLET PO SCH ×2 (09:00→21:11)
--- NOTE | 2016-09-20 09:46 | PDOC43 ---
- Subjective S: Denies pain. No overnight events. Physical Exam: General/Constitutional: Vitals documented above, comfortable in NAD Psych: A&O x 3, normal judgment and insight. Recent and remote memory intact. Mood and affect normal. Eyes: Pupils equal, no scleral icterus Ears, Nose, Mouth, Throat: gross hearing intact Neck: Supple Heart: RRR, no LE edema Lungs: Equal rise and fall of chest wall, non-labored breathing, no audible wheezes LEFT Lower Extremity: Wound vac removed. Exposed tendon/bone stable. Dorsal aspect with minimal granulation tissue but improved fibrinous exudate. Plantar aspect with no purulence (significantly improved) but moderate fibrinous exudate , exposed muscle, and cut tendon. The wound probes approx. 1cm towards the heel and 1cm medial toward the great toe. No erythema. A/P: 58yo M with complex diabetic LEFT foot infection. Wound not ideal, but improving and no further purulence. WBC normalized. Recommend continuing irrigating wound vac (Ulta/Veraflow) for 2 more days. If wound improved by then and no additional signs of sepsis, could potentially discharge home with standard vac at that time. Mukul Winkler MD General Surgeon - Objective Vital Signs Temperature 98.3 F 09/20/16 07:53 Pulse Rate 73 09/20/16 07:53 Respiratory Rate 16 09/20/16 07:53 Blood Pressure 138/76 09/20/16 07:53 O2 Saturation by Pulse Oximetry 94 09/20/16 07:53 Oxygen Delivery Method Room Air Oxygen Flow Rate 0 Laboratory 09/20/16 06:00 09/18/16 05:22 09/20/16 09/20/16 09/19/16 08:26 06:00 21:30 RBC 3.95 L POC Capillary Glucose 134 H 227 H % Immature Granulocyt 1.1 H 09/19/16 09/19/16 18:46 11:27 RBC POC Capillary Glucose 171 H 187 H % Immature Granulocyt Active Medication Orders Category Date Time Status Acetaminophen [Tylenol] Med 09/09/16 17:12 Active 650 mg PO Q6H PRN Atropine Sulfate Med 09/18/16 16:46 Active 0.2 mg IV X1 PRN Bisacodyl [Dulcolax] Med 09/09/16 17:12 Active 10 mg WI DAILY PRN Bisacodyl [Dulcolax] Med 09/09/16 17:12 Active 5 mg PO DAILY PRN Diphenhydramine HCl [Benadryl] Med 09/10/16 07:54 Active 25 - 50 mg PO Q6H PRN Docusate Sodium [Colace] Med 09/09/16 21:00 Active 100 mg PO BID Enoxaparin Sodium [Lovenox] Med 09/09/16 18:00 Active 40 mg SUB-Q Q24H Fentanyl Med 09/18/16 16:46 Active 50 mcg IV Q5M PRN Glyburide [Diabeta] Med 09/12/16 09:00 Active 5 mg PO QAM Hydralazine HCl [Apresoline] Med 09/18/16 16:46 Active 5 mg IV Q10M PRN Insulin Aspart (Dose) [Novolog (Dose)] Med 09/09/16 17:15 Active See Protocol SUB-Q WM/BEDTIME PRN Labetalol HCl [Trandate] Med 09/18/16 16:46 Active 5 mg IV Q5M PRN Lactated Ringers 1,000 ml Med 09/18/16 17:00 Active IV 100 mls/hr Lip [place] [Blistex] Med 09/10/16 07:55 Active 0 each TP PRN PRN Lisinopril [Prinivil] Med 09/10/16 17:30 Active 20 mg PO DAILY Lorazepam [Ativan] Med 09/15/16 09:37 Active 0.5 - 1 mg IV X1 PRN Magnesium Hydroxide [Milk of Magnesia] Med 09/09/16 17:12 Active 30 ml PO DAILY PRN Menthol/Cetylpyridinium [Cepacol] Med 09/09/16 17:12 Active 1 each PO PRN PRN Morphine Sulfate Med 09/18/16 16:46 Active 2 mg IV Q5M PRN Naloxone HCl [Narcan] Med 09/18/16 16:46 Active 0.2 mg IV X1 PRN Ondansetron 4 mg/2ml Vial [Zofran] Med 09/09/16 17:25 Active 4 mg IV Q4H PRN Ondansetron 4 mg/2ml Vial [Zofran] Med 09/18/16 16:46 Active 4 mg IV X1 PRN Oxycodone HCl [Roxicodone] Med 09/11/16 08:46 Active 5 - 10 mg PO Q3H PRN Pantoprazole Sodium [Protonix] Med 09/10/16 09:00 Active 40 mg PO DAILY Piperacillin-Tazo Premix Bag [Zosyn 3.375 G] 3.375 g Med 09/11/16 13:00 Active Premix (D5W) 50 ml 1 each IV Q6H Promethazine HCl [Phenergan] Med 09/18/16 16:46 Active 12.5 - 25 mg IM X1 PRN Sodium Chlor 0.45%/KCl 20 Meq 1,000 ml Med 09/18/16 02:00 Active IV BY DURATION Sodium Chloride 0.9% 100 ml Med 09/09/16 17:12 Active IV PRN Sodium Chloride 0.9% Flush [Normal Saline 10ml Flush] Med 09/09/16 17:12 Active 10 - 50 ml IV PRN PRN Sodium Chloride 0.9% Flush [Normal Saline 10ml Flush] Med 09/10/16 01:00 Active 10 ml IV Q8HR Sodium Chloride 500 Irrig Bot Med 09/15/16 10:55 Active 0 ml IR DAILY PRN Sulfamethoxazole/Trimethoprim [Septra Ds] Med 09/13/16 09:45 Active 1 each PO BID Intake and Output 09/18/16 09/19/16 09/20/16 23:59 23:59 23:59 Intake Total 1873 3917 1638 Output Total 825 625 Balance 1048 3917 1013
[2016-09-20] MEDS: SODIUM CHLORIDE 0.9% 500 ML BAG IR PRN (15:08)
[2016-09-20] MEDS: ENOXAPARIN SODIUM 40 MG/0.4 ML SYRINGE SUB-Q SCH (18:21)
--- NOTE | 2016-09-20 21:00 | PDOC43 ---
- Subjective Chief Complaint: left foot pain/swelling Wound vac replaced again this AM. No new c/o's. Subjective: Reports Tolerating Diet Well, Denies Shortness of Breath, Denies Cough, Denies Chest Pain, Denies Abdominal Pain, Denies Nausea, Denies Vomiting , Denies Fever, Denies Chills - Objective Vital Signs Temperature 98.1 F 09/20/16 19:29 Pulse Rate 85 09/20/16 19:29 Respiratory Rate 20 09/20/16 19:29 Blood Pressure 113/75 09/20/16 19:29 O2 Saturation by Pulse Oximetry 96 09/20/16 19:29 Oxygen Delivery Method Room Air Oxygen Flow Rate 0 Intake and Output 09/19/16 09/20/16 09/21/16 06:59 06:59 06:59 Intake Total 3043 3858 800 Output Total 625 Balance 3043 3233 800 General: Alert, Oriented x3, No Acute Distress Lungs: Clear to Auscultation Bilaterally Cardiovascular: Regular Rate and Rhythm Abdomen: Soft, Normal Bowel Sounds, No Tenderness Extremities: Other (Wound vac in place) Laboratory 09/20/16 06:00 Current Medications: Current meds reviewed in EMR. - Problems: Assessment/Plan (1) Cellulitis of left foot Status: AcuteAssessment/Plan: Blood and wound cultures done 09/09. Wound grew multiple organisms but GBS, Pseudomonas aeruginosa, Bacteroides fragilis, Stenotrophomonas maltophilia and MSSA identified so far with pansensitive organisms. Blood cx neg. Previously consulted with ID, will need to assess and determine antibiotic coverage on day of discharge to be done as an outpatient(follow up with [facility] infusion to be arranged on day of discharge). Will cont Zosyn and Bactrim until then. PICC placed on 09/15. (2) Gangrene of toe Status: AcuteAssessment/Plan: Wet gangrene on left 3rd toe. Mgmnt as above. (3) Diabetes type 2, uncontrolled Qualifiers: Diabetes mellitus complication status: with neurologic complications Diabetes mellitus complication detail: with polyneuropathy Diabetes mellitus halfway insulin use: without halfway use Qualifier Code: ( E11.42) Type 2 diabetes mellitus with diabetic polyneuropathy Status: ChronicAssessment/Plan: HgbA1c is 7.6. Stable on SSI, glyburide and DM diet. (4) Morbidly obese Qualifiers: Obesity type: due to excess calories Qualifier Code: (E66.01) Morbid ( severe) obesity due to excess calories Status: ChronicAssessment/Plan: BMI of 39.0. Complicates medical care VTE Prophylaxis: lovenox Disposition: Anticipate d/c 2-3 days with home health for wound care
[2016-09-21] MEDS: PIPERACILLIN-TAZO PREMIX BAG 3.375 G in Premix (D5W) 50 ml 1 EACH IV SCH ×4 (00:10→19:07)
[2016-09-21] MEDS: LACTATED RINGERS 1,000 ML IV SCH (05:49)
[2016-09-21 05:55] LABS: ABSOLUTE NEUTROPHIL COUNT 5.6 K/mm3 (1.8-7.7); BASO % 0.4 % (0.2-1.0); EOS # 0.2 (0.0-0.5); EOS % 2.8 % (0.9-2.9); HEMATOCRIT 34.6 % (32.0-52.0); HEMOGLOBIN 11.4 gm/l (14.0-18.0); IMM NEUT # 0.1 K/mm3 (0-0.2); IMM NEUT% 1.1 % (0-1); LYMPH # 1.5 (1.0-4.8); LYMPH % 18.1 % (15-45); MEAN CELL VOLUME 87.6 fl (80.0-94.0); MEAN CORPUSCULAR HEMOGLOBIN 28.9 pg (27.0-31.0); MEAN CORPUSCULAR HGB CONC 32.9 g/dl (33.0-37.0); MONO # 0.7 (0.0-0.8); MONO % 8.2 % (4-12); NEUT % 69.4 % (43-75); PLATELET COUNT 527 K/mm3 (130-400); RED CELL DISTRIBUTION WIDTH 12.3 % (11.5-14.5)
[2016-09-21] MEDS ORDERED: PUMP TUBING ONE (06:18)
[2016-09-21] MEDS: SODIUM CHLORIDE 0.9% 100 ML IV PRN (06:32)
[2016-09-21] MEDS: GLYBURIDE 5 MG TABLET PO SCH (09:03)
[2016-09-21] MEDS: LISINOPRIL 20 MG TABLET PO SCH (09:03)
[2016-09-21] MEDS: DOCUSATE SODIUM 100 MG CAPSULE PO SCH ×2 (09:03→20:09)
[2016-09-21] MEDS: SULFAMETHOXAZOLE 800 MG/TRIMETHOPRIM 160 MG TABLET PO SCH ×2 (09:03→20:09)
[2016-09-21] MEDS: PANTOPRAZOLE 40 MG TABLET DR PO SCH (09:03)
[2016-09-21] MEDS: INSULIN ASPART (DOSE) 100 UNITS/1 ML SUB-Q PRN (12:47)
--- NOTE | 2016-09-21 13:26 | PDOC43 ---
- Subjective Subjective: Reports Pain Tolerable, Denies Nausea, Denies Fever - Objective Vital Signs Temperature 98.3 F 09/21/16 08:39 Pulse Rate 77 09/21/16 08:39 Respiratory Rate 16 09/21/16 09:00 Blood Pressure 126/75 09/21/16 08:39 O2 Saturation by Pulse Oximetry 94 09/21/16 08:39 Oxygen Delivery Method Room Air Oxygen Flow Rate 0 Laboratory 09/21/16 05:00 09/18/16 05:22 09/21/16 09/21/16 09/21/16 11:28 07:31 05:00 RBC 3.95 L MCHC 32.9 L POC Capillary Glucose 223 H 174 H % Immature Granulocyt 1.1 H 09/20/16 09/20/16 21:14 18:23 RBC MCHC POC Capillary Glucose 184 H 179 H % Immature Granulocyt Active Medication Orders Category Date Time Status Acetaminophen [Tylenol] Med 09/09/16 17:12 Active 650 mg PO Q6H PRN Bisacodyl [Dulcolax] Med 09/09/16 17:12 Active 10 mg OR DAILY PRN Bisacodyl [Dulcolax] Med 09/09/16 17:12 Active 5 mg PO DAILY PRN Diphenhydramine HCl [Benadryl] Med 09/10/16 07:54 Active 25 - 50 mg PO Q6H PRN Docusate Sodium [Colace] Med 09/09/16 21:00 Active 100 mg PO BID Enoxaparin Sodium [Lovenox] Med 09/09/16 18:00 Active 40 mg SUB-Q Q24H Glyburide [Diabeta] Med 09/12/16 09:00 Active 5 mg PO QAM Insulin Aspart (Dose) [Novolog (Dose)] Med 09/09/16 17:15 Active See Protocol SUB-Q WM/BEDTIME PRN Lip [place] [Blistex] Med 09/10/16 07:55 Active 0 each TP PRN PRN Lisinopril [Prinivil] Med 09/10/16 17:30 Active 20 mg PO DAILY Lorazepam [Ativan] Med 09/15/16 09:37 Active 0.5 - 1 mg IV X1 PRN Magnesium Hydroxide [Milk of Magnesia] Med 09/09/16 17:12 Active 30 ml PO DAILY PRN Menthol/Cetylpyridinium [Cepacol] Med 09/09/16 17:12 Active 1 each PO PRN PRN Ondansetron 4 mg/2ml Vial [Zofran] Med 09/09/16 17:25 Active 4 mg IV Q4H PRN Oxycodone HCl [Roxicodone] Med 09/11/16 08:46 Active 5 - 10 mg PO Q3H PRN Pantoprazole Sodium [Protonix] Med 09/10/16 09:00 Active 40 mg PO DAILY Piperacillin-Tazo Premix Bag [Zosyn 3.375 G] 3.375 g Med 09/11/16 13:00 Active Premix (D5W) 50 ml 1 each IV Q6H Sodium Chlor 0.45%/KCl 20 Meq 1,000 ml Med 09/18/16 02:00 Active IV BY DURATION Sodium Chloride 0.9% Med 09/20/16 14:24 Active 0 ml IR DAILY PRN Sodium Chloride 0.9% 100 ml Med 09/09/16 17:12 Active IV PRN Sodium Chloride 0.9% Flush [Normal Saline 10ml Flush] Med 09/09/16 17:12 Active 10 - 50 ml IV PRN PRN Sodium Chloride 0.9% Flush [Normal Saline 10ml Flush] Med 09/10/16 01:00 Active 10 ml IV Q8HR Sulfamethoxazole/Trimethoprim [Septra Ds] Med 09/13/16 09:45 Active 1 each PO BID Intake and Output 09/20/16 09/21/16 09/22/16 06:59 06:59 06:59 Intake Total 3858 3303 711 Output Total 625 300 Balance 3233 3303 411 General: Alert, Oriented x3 Extremities: No Edema, No Tenderness Skin: Normal Color, No Erythema, No Induration Wound: Dressing Clean/Dry/Intact - Assessment/ Plan (1) Cellulitis of left foot Status: AcuteAssessment/ Plan: Will look at outpatient antibiotic options. Probably home tomorrow with conventional wound vac. Discussed with him and through billing specialist. Discussed with billing specialist. (2) Diabetes type 2, uncontrolled Qualifiers: Diabetes mellitus complication status: with neurologic complications Diabetes mellitus complication detail: with polyneuropathy Diabetes mellitus intermodal dispatcher insulin use: without intermodal dispatcher use Qualifier Code: ( E11.42) Type 2 diabetes mellitus with diabetic polyneuropathy Status: ChronicAssessment/ Plan: Overall stable. Surprising with degree of cellulitis.
--- NOTE | 2016-09-21 14:49 | PDOC43 ---
- Subjective Chief Complaint: left foot pain/swelling Subjective: Reports Pain Tolerable, Reports Tolerating Diet Well, Denies Fever - Objective Vital Signs Temperature 98.4 F 09/21/16 14:35 Pulse Rate 81 09/21/16 14:35 Respiratory Rate 16 09/21/16 14:35 Blood Pressure 118/76 09/21/16 14:35 O2 Saturation by Pulse Oximetry 94 09/21/16 14:35 Oxygen Delivery Method Room Air Oxygen Flow Rate 0 Intake and Output 09/20/16 09/21/16 09/22/16 06:59 06:59 06:59 Intake Total 3858 3303 795 Output Total 625 700 Balance 3233 3303 95 General: Alert, Oriented x3, Cooperative, No Acute Distress HEENT: Mucous membr. moist/pink Lungs: Clear to Auscultation Bilaterally Cardiovascular: Regular Rate and Rhythm Abdomen: Soft, Normal Bowel Sounds, Non-Distended, No Tenderness Wound: Erythema (resolving), Other (wound vac in place) Laboratory 09/21/16 05:00 09/18/16 05:22 09/21/16 09/21/16 09/21/16 11:28 07:31 05:00 RBC 3.95 L MCHC 32.9 L POC Capillary Glucose 223 H 174 H % Immature Granulocyt 1.1 H 09/20/16 09/20/16 21:14 18:23 RBC MCHC POC Capillary Glucose 184 H 179 H % Immature Granulocyt Current Medications: Current meds reviewed in EMR. - Problems: Assessment/Plan (1) Cellulitis of left foot Status: AcuteAssessment/Plan: Blood and wound cultures done 09/09. Wound grew multiple organisms but GBS, Pseudomonas aeruginosa, Bacteroides fragilis, Stenotrophomonas maltophilia and MSSA identified so far with pansensitive organisms. Blood cx neg. Previously consulted with ID, will need to assess and determine antibiotic coverage on day of discharge to be done as an outpatient(follow up with [facility] infusion to be arranged on day of discharge) versus surgical management of infection with 6 weeks of IV Zosyn Will cont Zosyn and Bactrim and anticipate 6 weeks of Zosyn via CAD and wound care via [facility] PICC placed on 09/15. (2) Gangrene of toe Status: AcuteAssessment/Plan: Wet gangrene on left 3rd toe. Mgmnt as above. (3) Diabetes type 2, uncontrolled Qualifiers: Diabetes mellitus complication status: with neurologic complications Diabetes mellitus complication detail: with polyneuropathy Diabetes mellitus artillery or naval gunfire observer insulin use: without jail use Qualifier Code: ( E11.42) Type 2 diabetes mellitus with diabetic polyneuropathy Status: ChronicAssessment/Plan: HgbA1c is 7.6. Stable on SSI, glyburide and DM diet. VTE Prophylaxis: lovenox Disposition: Anticipate d/c in am, leaning toward 6 weeks of IV Zosyn and wound to be managed by Dr Juárez in cooperation with [facility] and outpatient wound vac.
[2016-09-21] MEDS: SODIUM CHLORIDE 0.9% 500 ML BAG IR PRN (15:02)
[2016-09-21] MEDS: ENOXAPARIN SODIUM 40 MG/0.4 ML SYRINGE SUB-Q SCH (17:15)
[2016-09-21] MEDS: OXYCODONE HCL 5 MG TABLET PO PRN (20:09)
[2016-09-22] MEDS: PIPERACILLIN-TAZO PREMIX BAG 3.375 G in Premix (D5W) 50 ml 1 EACH IV SCH ×3 (00:33→11:58)
[2016-09-22] MEDS: OXYCODONE HCL 5 MG TABLET PO PRN ×2 (00:36→07:14)
[2016-09-22 06:47] LABS: ABSOLUTE NEUTROPHIL COUNT 5.4 K/mm3 (1.8-7.7); BASO % 0.5 % (0.2-1.0); EOS # 0.2 (0.0-0.5); EOS % 2.8 % (0.9-2.9); HEMATOCRIT 35.8 % (32.0-52.0); HEMOGLOBIN 12.1 gm/l (14.0-18.0); IMM NEUT # 0.1 K/mm3 (0-0.2); IMM NEUT% 0.8 % (0-1); LYMPH # 1.3 (1.0-4.8); LYMPH % 17.1 % (15-45); MEAN CELL VOLUME 86.5 fl (80.0-94.0); MEAN CORPUSCULAR HEMOGLOBIN 29.2 pg (27.0-31.0); MEAN CORPUSCULAR HGB CONC 33.8 g/dl (33.0-37.0); MEAN PLATELET VOLUME 8.8 fl (7.4-10.4); MONO # 0.7 (0.0-0.8); NEUT % 69.8 % (43-75); PLATELET COUNT 534 K/mm3 (130-400); RED CELL DISTRIBUTION WIDTH 12.4 % (11.5-14.5)
[2016-09-22] MEDS: GLYBURIDE 5 MG TABLET PO SCH (09:52)
[2016-09-22] MEDS: SULFAMETHOXAZOLE 800 MG/TRIMETHOPRIM 160 MG TABLET PO SCH (09:52)
[2016-09-22] MEDS: DOCUSATE SODIUM 100 MG CAPSULE PO SCH (09:52)
[2016-09-22] MEDS: LISINOPRIL 20 MG TABLET PO SCH (09:52)
[2016-09-22] MEDS: PANTOPRAZOLE 40 MG TABLET DR PO SCH (09:52)
[2016-09-22] MEDS ORDERED: SODIUM CHLORIDE 0.9% IV PRN ×2 (13:00→16:00)
[2016-09-22] MEDS ORDERED: [UNRECOGNIZED DRUG - OTHER] ZZ SCH (13:00)
[2016-09-22] MEDS ORDERED: TAZOBACTAM IV PRN ×2 (13:00→16:00)
[2016-09-22] MEDS ORDERED: PIPERACILLIN SODIUM IV PRN ×2 (13:00→16:00)
--- NOTE | 2016-09-22 13:32 | DS ---
Rudy Purdy [id number] DATE OF ADMISSION: 09/09/2016 DATE OF DISCHARGE: 09/22/2016 CONSULTATIONS: Included a surgical consultation with Dr. Monica Canela on 09/10/2016. PROCEDURES: Included multiple incisions and drainages of the left foot, the first was on 09/10/2016 and also included amputation of the left third toe by Dr. Monica Canela, the second was by Dr. Francisco J Juárez on 09/12/2016, and third was on 09/18/[address] Mukul Winkler. He had a peripherally inserted central catheter placed on 09/15/2016. DISCHARGE DIAGNOSES: 1. Cellulitis of the left foot with gangrene of the left third toe. 2. Uncontrolled adult onset diabetes. 3. Morbid obesity. 4. Congenital dextrocardia. TO SUMMARIZE THE ADMISSION AND HOSPITAL COURSE: The patient is a 56-year-old male with a longstanding history of diabetes treated with oral medications without a primary care provider who dropped a pot on his left foot and developed pain and swelling, progressive redness and puffiness. The injury occurred may be two weeks ago although, initially it was reportedly at work he denies that currently. He developed increasing redness especially involving the left third toe increasing into the dorsum of the foot into the lower leg. Workup in the emergency department showed no acute fracture. He had an elevated white blood cell count of 28.7000 and normal lactate, glucose level 177 with a creatinine of 0.7. He was referred to the hospitalist service for cellulitis and gangrene of the left third toe. He underwent amputation of the left third toe on September 10 as I mentioned. He was treated initially with Rocephin plus vancomycin. Later the Rocephin was changed to Zosyn. Cultures of the foot were polymicrobial including Group B Strep, Staph aureus, pseudomonas aeruginosa, Stenotrophomonas aeruginosa, Maltophilia, based on all of his sensitivity patterns his vancomycin was discontinued and Zosyn IV therapy was used along with Bactrim DS oral therapy for the Stenotrophomonas and Maltophilia. Patient had a prolonged hospital course because of the nature of multiple incisions and drainages and debridement procedures. He was treated with a wound VAC including an irrigating wound VAC during his stay. His medications for his diabetes were adjusted and eventually controlled with Glyburide. On the day of discharge metformin was also added to improve glycemic control. He did have some hypertension during his stay and was managed with lisinopril which he tolerated well. By September 22 he was felt to be medically stable for discharge. PHYSICAL EXAMINATION: VITALS: At discharge showed a temperature of 98.7, pulse 84, blood pressure 107/74, respirations 16, oxygen saturation is 98% on room air. Body mass index 39, weight 106.2 kg. GENERAL: This is an obese male in no acute distress. HEENT: Unremarkable. LUNGS: Clear to auscultation bilaterally. CARDIOVASCULAR: Reveals a regular rate and rhythm without a murmur. ABDOMEN: Soft, nontender, nondistended with positive bowel sounds. GENITOURINARY: Deferred. RECTAL: Deferred. EXTREMITIES: In the left foot he has a large incision extending through the dorsum of the foot across the space where the left third digit was and extending down into the plantar aspect of the mid foot with the third metatarsal head exposed and the extensor tendons also exposed in this deep space. There is wound VAC placed over the area and the patient's erythema which had been in the left leg is resolved and dorsum of the foot is also resolved. There is edema at this point. He does have 2+ dorsalis pedis pulses present and 1+ posterior tibial pulses present. LABORATORY STUDIES: On the day of discharge CBC showed a white count of 7.8, hemoglobin 12.1, and a platelet count of 534,000. DISPOSITION: Home. DISCHARGE CONDITION: Good. DISCHARGE MEDICATIONS: 1. Bactrim DS 1 by mouth twice daily for 14 days. 2. Zosyn 3.375 gm IV every 6 hours to be administered for another 45 days through a CADD pump via PICC line. 3. Oxycodone 5 to 10 mg every 3 hours as needed for pain, recommend he takes this about a half of an hour prior to his dressing changes. He was given 60 pills, no refill. 4. Metformin 850 mg twice daily with meals. 5. Lisinopril 20 mg daily. 6. Glyburide 5 mg every morning. 7. He is given a prescription for Glucometer, test strips, and Lancets to test fasting blood sugar every three days and as needed. FOLLOW UP: He also will follow up with Dr. Francisco J Juárez as arranged by Dr. Juárez's office. He is referred to a new primary care provider Johnathan Streeter NP on October 10 at 10:00 a.m. He will be following up daily at the [facility] for refill of his CADD pump. He will have dressing changes from his home wound VAC on Sunday, Sunday, and Sunday. DISCHARGE DIET: Diabetic diet. He was given diabetic instructions. ACTIVITY: He was given instructions that he can weightbear as tolerated on the left foot, but he will be using a surgical shoe to protect the dressing and he should keep the dressings clean and dry and if he does try and bathe he needs to cover them with a water tight dressing both the PICC line and the left lower extremity. Dr. Juárez will be following the wound and adjust his antibiotic course as indicated. He was given a work release for the next 6 weeks. JOB: [id number] CC: Dr. Francisco J Streeter NP
[2016-09-22] MEDS: INSULIN ASPART (DOSE) 100 UNITS/1 ML SUB-Q PRN (13:35)
[2016-09-22 14:10] VITALS: BP 108/70
--- NOTE | 2016-10-03 09:14 | PROCNOTE ---
Rudy Childs [id number] DATE OF SURGERY: 09/22/2016 PREPROCEDURE DIAGNOSIS: Open wound left foot, status post third toe amputation. POSTOPERATIVE DIAGNOSIS: Open wound left foot, status post third toe amputation. PROCEDURE: Sharp debridement using scissors of skin, subcutaneous fat, and tendon. SURGEON: Francisco J Juárez M.D. ANESTHESIA: None. INDICATION: This is a 56-year-old male with gangrene of the third toe of the left foot who has had multiple surgical procedures. It is planned for him to go home. He does have some necrosis of the skin and subcutaneous fat along with some tendons within the wound. The plan is to go home with a wound VAC and intravenous antibiotics. It is planned that he will need further surgical revision of this to save the foot. He is still at risk for needing a below the knee amputation. DESCRIPTION: Procedure was performed in his bed. With his consent I sharply debrided necrotic black tissue from the wound edges. We did get a small amount of bleeding. He did have minimal sensation once I got to the bleeding areas. Using scissors I also debrided quite a bit of callused skin from the plantar aspect of his foot. This is going to be required to allow for adequate wound VAC seal. I debrided on the posterior aspect including some of the posterior tendinous structures. He tolerated this well. We will have the [facility] nursing replace his wound VAC. Recommendations going forward include wound VAC care three times a week through [facility]. I agree with hospitalist choice for a total of six weeks because of the exposed bone. He can weightbear on the foot. We will get him a walking shoe for that. I will follow up with him in [facility] next week. Best case scenario would be that we can revise the wound, excise the end of the third metatarsal. He does have some ischemia on the medial aspect of his fourth toe. If this does not survive we may end up amputating that as well. These recommendations were discussed with the hospitalist, care managers, and the family using an sales market leader. JOB: [id number]
== END 2016-09-22 17:40 | disposition home or self-care (01) | DRG 617 ==
LOC: ED 14:06 → MS 16:12
PROVIDERS: ADMIT Family Medicine; ATTEND Surgery
PROC: 0Y6U0Z3 Detachment at Left 3rd Toe, Low, Open Approach (ICD-10-PCS; 2016-09-10)
PROC: 0Y6U0Z0 Detachment at Left 3rd Toe, Complete, Open Approach (ICD-10-PCS; principal; 2016-09-12)
PROC: 02HV33Z Insertion of Infusion Device into Superior Vena Cava, Percutaneous Approach (ICD-10-PCS; 2016-09-15)
PROC: 0H9NXZX Drainage of Left Foot Skin, External Approach, Diagnostic (ICD-10-PCS; 2016-09-18)
PROC: 0JBR0ZZ Excision of Left Foot Subcutaneous Tissue and Fascia, Open Approach (ICD-10-PCS; 2016-09-22)
DX: E11.69 Type 2 diabetes mellitus with other specified complication (principal); M86.172 Other acute osteomyelitis, left ankle and foot; E11.52 Type 2 diabetes mellitus with diabetic peripheral angiopathy with gangrene; Q24.0 Dextrocardia; E11.65 Type 2 diabetes mellitus with hyperglycemia; E11.628 Type 2 diabetes mellitus with other skin complications; L03.032 Cellulitis of left toe; E66.01 Morbid (severe) obesity due to excess calories; E11.42 Type 2 diabetes mellitus with diabetic polyneuropathy; Z68.39 Body mass index [BMI] 39.0-39.9, adult; B95.62 Methicillin resistant Staphylococcus aureus infection as the cause of diseases classified elsewhere; B95.1 Streptococcus, group B, as the cause of diseases classified elsewhere; B96.5 Pseudomonas (aeruginosa) (mallei) (pseudomallei) as the cause of diseases classified elsewhere

== ENCOUNTER 2016-09-23 21:11 | Emergency (ER) | payer BC ==
[2016-09-23] MEDS ORDERED: LACTATED RINGERS 1,000 ML ONE (22:30)
[2016-09-23] MEDS ORDERED: ONDANSETRON 4 MG/2ML 2 ML VIAL ONE (22:30)
[2016-09-23 23:01] LABS: ABSOLUTE NEUTROPHIL COUNT 5.6 K/mm3 (1.8-7.7); BASO % 0.4 % (0.2-1.0); EOS # 0.1 (0.0-0.5); EOS % 1.7 % (0.9-2.9); HEMATOCRIT 32.5 % (32.0-52.0); HEMOGLOBIN 10.9 gm/l (14.0-18.0); IMM NEUT # 0.1 K/mm3 (0-0.2); IMM NEUT% 0.8 % (0-1); LYMPH % 13.2 % (15-45); MEAN CELL VOLUME 87.6 fl (80.0-94.0); MEAN CORPUSCULAR HEMOGLOBIN 29.4 pg (27.0-31.0); MEAN CORPUSCULAR HGB CONC 33.5 g/dl (33.0-37.0); MEAN PLATELET VOLUME 8.6 fl (7.4-10.4); MONO # 0.7 (0.0-0.8); MONO % 9.8 % (4-12); NEUT % 74.1 % (43-75); PLATELET COUNT 414 K/mm3 (130-400); RED CELL DISTRIBUTION WIDTH 12.7 % (11.5-14.5)
[2016-09-23 23:26] LABS: ALB/GLOB RATIO 0.7 (>1.0); CALCIUM 8.6 mg/dL (8.6-10.3)
[2016-09-24 00:12] LABS: SPECIFIC GRAVITY 1.015 (1.001-1.030); URINE BILIRUBIN NEGATIVE (NEGATIVE); URINE BLOOD TRACE (NEGATIVE); URINE COLOR AMBER; URINE GLUCOSE (UA) NEGATIVE (NEGATIVE); URINE LEUKOCYTE ESTERASE NEGATIVE (NEGATIVE); URINE NITRITE NEGATIVE (NEGATIVE); URINE PROTEIN 1+ (NEGATIVE); URINE UROBILINOGEN NORMAL (0-1 mg/dl)
[2016-09-24 00:13] LABS: URINE APPEARANCE CLEAR
[2016-09-24 00:20] LABS: URINE BACTERIA 0; URINE CASTS 0-1 GRANULAR /lpf; URINE EPITHELIAL CELLS RARE /hpf; URINE WBC 0-1 /hpf
== END 2016-09-24 03:38 | disposition home or self-care (01) ==
LOC: ED 21:11
DX: R11.2 Nausea with vomiting, unspecified (principal); I10 Essential (primary) hypertension; Z79.84 Long term (current) use of oral hypoglycemic drugs; L03.116 Cellulitis of left lower limb; I96 Gangrene, not elsewhere classified; E11.65 Type 2 diabetes mellitus with hyperglycemia; Z48.01 Encounter for change or removal of surgical wound dressing

== ENCOUNTER 2016-09-25 10:34 | Emergency (ER) | payer BC ==
[2016-09-25] MEDS ORDERED: SODIUM CHLORIDE 0.9% 1,000 ML ONE ×3 (11:23→13:24)
[2016-09-25] MEDS ORDERED: ONDANSETRON 4 MG/2ML 2 ML VIAL ONE (11:23)
[2016-09-25 11:28] LABS: ABSOLUTE NEUTROPHIL COUNT 4.2 K/mm3 (1.8-7.7); BASO % 0.4 % (0.2-1.0); EOS # 0.1 (0.0-0.5); EOS % 2.2 % (0.9-2.9); HEMATOCRIT 35.4 % (32.0-52.0); HEMOGLOBIN 11.5 gm/l (14.0-18.0); IMM NEUT% 0.6 % (0-1); LYMPH # 0.6 (1.0-4.8); LYMPH % 10.9 % (15-45); MEAN CELL VOLUME 88.1 fl (80.0-94.0); MEAN CORPUSCULAR HEMOGLOBIN 28.6 pg (27.0-31.0); MEAN CORPUSCULAR HGB CONC 32.5 g/dl (33.0-37.0); MEAN PLATELET VOLUME 8.8 fl (7.4-10.4); MONO # 0.5 (0.0-0.8); MONO % 8.5 % (4-12); NEUT % 77.4 % (43-75); PLATELET COUNT 383 K/mm3 (130-400); RED CELL DISTRIBUTION WIDTH 12.9 % (11.5-14.5)
[2016-09-25 11:49] LABS: CALCIUM 9.1 mg/dL (8.6-10.3)
[2016-09-25 13:13] LABS: URINE BILIRUBIN 1+ (NEGATIVE); URINE BLOOD TRACE (NEGATIVE); URINE GLUCOSE (UA) NEGATIVE (NEGATIVE); URINE LEUKOCYTE ESTERASE NEGATIVE (NEGATIVE); URINE NITRITE NEGATIVE (NEGATIVE); URINE PROTEIN 1+ (NEGATIVE); URINE UROBILINOGEN 12 mg/dL (0-1 mg/dl)
[2016-09-25 13:14] LABS: URINE APPEARANCE CLEAR; URINE COLOR YELLOW
[2016-09-25 13:34] LABS: URINE RBC 0-1 /hpf; URINE WBC NEG /hpf
[2016-09-25 13:35] LABS: URINE BACTERIA RARE; URINE EPITHELIAL CELLS 0-1 /hpf
== END 2016-09-25 15:14 | disposition home or self-care (01) ==
LOC: ED 10:34
DX: E86.0 Dehydration (principal); R11.2 Nausea with vomiting, unspecified; T81.89XA Other complications of procedures, not elsewhere classified, initial encounter; E11.621 Type 2 diabetes mellitus with foot ulcer; L97.529 Non-pressure chronic ulcer of other part of left foot with unspecified severity; I10 Essential (primary) hypertension; Z79.84 Long term (current) use of oral hypoglycemic drugs; Y83.5 Amputation of limb(s) as the cause of abnormal reaction of the patient, or of later complication, without mention of misadventure at the time of the procedure; Y92.9 Unspecified place or not applicable
CPT/HCPCS: 83605; 85025; 87040; 80048; 81001; 99283 ×2; 96374; 96361; 36592; J2405; J7030 ×3

== ENCOUNTER 2016-10-31 09:59 | Day surgery (SDC) | payer BC ==
[2016-10-31] MEDS ORDERED: LACTATED RINGERS 1,000 ML ONE (14:26)
[2016-10-31] MEDS ORDERED: IV START KIT ONE (14:26)
[2016-10-31 14:40] LABS: HEMATOCRIT 39.5 % (32.0-52.0); HEMOGLOBIN 13.1 gm/l (14.0-18.0); MEAN CORPUSCULAR HEMOGLOBIN 29.2 pg (27.0-31.0); MEAN CORPUSCULAR HGB CONC 33.2 g/dl (33.0-37.0); RED CELL DISTRIBUTION WIDTH 13.7 % (11.5-14.5)
[2016-10-31 15:00] LABS: ALB/GLOB RATIO 1.2 (>1.0); ALBUMIN 3.8 gm/dL (3.5-5.7); CALCIUM 9.3 mg/dL (8.6-10.3)
[2016-10-31] MEDS ORDERED: ROPIVACAINE 0.5% 30 ML VIAL ONE (15:56)
[2016-10-31] MEDS ORDERED: SODIUM CHLORIDE 0.9% FLUSH 10 ML ONE (16:03)
[2016-10-31] MEDS ORDERED: CEFAZOLIN SODIUM 1,000 MG VIAL ONE (16:03)
[2016-10-31] MEDS ORDERED: PROPOFOL 20 ML IV ONE (16:03)
[2016-10-31] MEDS ORDERED: FENTANYL 100 MCG/2 ML VIAL ONE (16:03)
[2016-10-31] MEDS ORDERED: MIDAZOLAM HCL 1 MG/ML 2ML VIAL ONE (16:03)
[2016-10-31] MEDS ORDERED: SODIUM CHLORIDE 0.9% IV ONE (16:18)
[2016-10-31] MEDS ORDERED: TAZOBACTAM IV ONE (16:18)
[2016-10-31] MEDS ORDERED: PIPERACILLIN SODIUM IV ONE (16:18)
[2016-10-31] MEDS ORDERED: ONDANSETRON 4 MG/2ML 2 ML VIAL IV PRN (17:38)
[2016-10-31] MEDS ORDERED: ACETAMINOPHEN 325 MG TABLET PO PRN (17:38)
[2016-10-31] MEDS ORDERED: OXYCODONE HCL 5 MG TABLET PO PRN (17:38)
[2016-10-31] MEDS ORDERED: MORPHINE SULFATE 2 MG/ML SYRINGE IV PRN (17:38)
[2016-10-31] MEDS ORDERED: MORPHINE SULFATE 4 MG/ML SYRINGE IV PRN (17:49)
[2016-10-31] MEDS ORDERED: MORPHINE SULFATE 10 MG/ML SYRINGE IV PRN (17:50)
[2016-10-31] MEDS ORDERED: PIPERACILLIN SODIUM IV SCH (18:00)
[2016-10-31] MEDS ORDERED: SODIUM CHLORIDE 0.9% IV SCH (18:00)
[2016-10-31] MEDS ORDERED: TAZOBACTAM IV SCH (18:00)
[2016-10-31 20:04] VITALS: BP 154/85
--- NOTE | 2016-11-01 06:58 | OP ---
Corbin Childers [id number] DATE OF PROCEDURE: 10/31/2016 PREOPERATIVE DIAGNOSIS: Gangrene fourth toe, diabetic foot wound with history of abscess. POSTOPERATIVE DIAGNOSIS: Gangrene fourth toe, diabetic foot wound with history of abscess. PROCEDURE: Amputation of fourth toe, resection of third metatarsal, wound VAC placement. SURGEON: Francisco J Juárez MD ANESTHESIA: [place], ankle block. INDICATION: This is a 56-year-old male who initially presented after injuring his third toe on the left foot. This developed wet gangrene. He has had multiple amputations and had the plantar aspect of the foot opened to drain pus. He had obvious osteomyelitis initially. His wound has been healing using a wound VAC. He has been on intravenous antibiotics for the osteomyelitis. He has developed dry gangrene of the fourth toe. DESCRIPTION: With informed consent he was taken to the operating room where he was laid supine on the operating room table. Ankle block was applied by anesthesia. The left foot was prepped and draped in a sterile fashion. There was a fairly demarcation between healthy skin and the gangrene of the fourth toe. I incised through healthy tissue down to the level of the bone. I the bone at the metatarsophalangeal joint. The toe was handed off pathology. We had good bleeding from the skin edges, this was cauterized. We had fairly good coverage of the fourth metatarsal, left the head in place. We did have a third metatarsal head with some granulation tissue around it, but it was determined preoperatively that we would excise the head to help the subcutaneous tissues close in and cover the exposed bone. I dissected that free using a periosteal elevator. I then resected the metatarsal head of the third metatarsal using an oscillating saw. We cauterized the bone. I excised some of the surrounding joint capsule. The wound was irrigated. We appeared to have adequate hemostasis. I was able to bring the skin together over the amputation site of the fourth toe. I brought the subcutaneous tissues together with some 3-0 Vicryl. The skin was closed with some interrupted 3-0 Nylon's. I then replaced the wound VAC. We had a good seal. Kerlix and Guy were applied. He tolerated the procedure and was taken to the recovery room in stable condition. Note was made that needle, instrument, and lap counts were reported as correct at the time of closure. JOB: [id number]
== END 2016-10-31 20:49 | disposition home or self-care (01) ==
LOC: SDC 09:59 → MS 18:28 → SDC 20:49
PROVIDERS: ATTEND Surgery
DX: E11.52 Type 2 diabetes mellitus with diabetic peripheral angiopathy with gangrene (principal); I10 Essential (primary) hypertension; Z79.84 Long term (current) use of oral hypoglycemic drugs
CPT/HCPCS: 85027; 80053; 28810; J0690; J3010; J2795; A9270; J2250; J7120